=== PATIENT | male | born 1950 | race Caucasian/White ===

== ENCOUNTER → 2023-08-16 14:41 | Outpatient (CLI) | payer OTHER, SELFPAY ==
--- NOTE | 2023-08-16 | DI.RAD.S_ITS ---
PROCEDURE: XR HIP W PEL IF DONE DANNIE MIN 4V INDICATIONS: BILATERAL HIP PAIN TECHNIQUE: AP pelvis with lateral view(s) of the left hip(s). COMPARISON: None. FINDINGS: Bones: Severe left and moderate right degenerative changes. Age-indeterminate fracture deformity of the left femoral neck. Soft tissues: Moderate to large fecal loading. Partially seen intrathecal device. IMPRESSION: Severe left and moderate right hip degenerative changes. Age-indeterminate fracture deformity of the left proximal femur neck. Consider cross-sectional imaging correlation with clinical history to determine acuity. Called to the ED. Dictated by: Kanu Alicia M.D. on 08/16/2023 at 19:56 Approved by: Kanu Alicia M.D. on 08/16/2023 at 20:04
== END ==
PROVIDERS: PCP Internal Medicine; Referring Provider Nurse Practitioner; Visit Provider Nurse Practitioner
DX: S72.092A Other fracture of head and neck of left femur, initial encounter for closed fracture (principal); M25.551 Pain in right hip; M25.552 Pain in left hip
CPT/HCPCS: 73522

== ENCOUNTER 2023-08-17 12:02 | Inpatient (IN) | payer OTHER, SELFPAY ==
[2023-08-17 12:22] VITALS: BP 117/55; PULSE 101; RESP 16; TEMP 36.6; O2SAT 97; BMI 42.8
--- NOTE | 2023-08-17 12:41 | PC.NURSE ---
patient with assistance x 1 able to stand and pivot into wheelchair to use bathroom. able to bear weight on both legs. states that his has been doing physical therapy over at [facility] which has helped him.
[2023-08-17] MEDS: MORPHINE 4 MG/ML INJ IV ×2 (13:22→16:46)
--- NOTE | 2023-08-17 13:22 | ED.FALL ---
HPI - Fall General Chief Complaint: Fall Stated Complaint: Fall, hip pain Time Seen by Provider: 08/17/23 12:10 History of Present Illness HPI Narrative: Patient is a 73-year-old male history of diabetes, neuropathy, hypertension hyperlipidemia presents today with left hip pain. He fell on August 04 on his left side he was seen evaluated at [facility] where he would x-rays of his upper body done but none of his hip. He was ultimately sent sound [facility]. He continues to complain of left hip pain. He is minimally weight-bearing he says mostly he gets around by wheelchair. He had an outpatient hip x-ray done yesterday which does show a femoral neck fracture. He has no other complaints. Related Data Allergies Allergy/AdvReac Type Severity Reaction Status Date / Time No Known Drug Allergies Allergy Verified 08/17/23 13:26 Exam Initial Vital Signs Initial Vital Signs: Vital Signs Temperature 97.8 F 08/17/23 12:22 Pulse Rate 101 H 08/17/23 12:22 Respiratory Rate 16 08/17/23 12:22 Blood Pressure 117/55 L 08/17/23 12:22 Pulse Oximetry 97 08/17/23 12:22 Oxygen Delivery Method Room Air 08/17/23 12:22 GENERAL: Alert 73-year-old male BMI 42 and in no acute distress. HEENT: Head atraumatic,EOMI, pupils reactive, face symmetric, moist mucous membranes CARDIOVASCULAR: Regular rate and rhythm without murmurs, rubs or gallops. RESPIRATORY: Breath sounds equal bilaterally, no wheezes rales or rhonchi. ABDOMEN: Soft, nontender. Normoactive bowel sounds all 4 quadrants. No guarding or rebound. EXTREMITIES: Normal range of motion, no clubbing or edema. Neurovascularly intact Left hip pain distal pedal pulse intact legs are of equal length NEUROLOGICAL: Alert and oriented x4. SKIN: Warm, dry, no laceration, no petechiae, no rashes or lesions. Course Orders Ordered: ED Orders 08/17/23 13:00 CBC Auto Diff [Complete Blood Count AUTO DIFF] Stat CMP [Comprehensive Metabolic Panel] Stat 08/17/23 15:12 CT pelvis wo con Stat Discontinued Medications Morphine Sulfate (Morphine 4 Mg/Ml Inj) 4 mg IV NOW ONE Stop: 08/17/23 13:15 Last Admin: 08/17/23 13:22 Dose: 4 mg Documented By: LARRY Morphine Sulfate (Morphine 4 Mg/Ml Inj) 4 mg IV NOW ONE Stop: 08/17/23 16:23 Vital Signs Vital signs: Vital Signs - 8 hr 08/17/23 12:22 08/17/23 13:26 08/17/23 15:56 Temperature 97.8 F 98 F Pulse Rate 101 H 98 H 107 H Respiratory Rate 16 16 16 Blood Pressure 117/55 L 113/58 L 113/54 L Pulse Oximetry 97 95 97 Oxygen Delivery Method Room Air Room Air Room Air MDM - Fall Lab Data 08/17/23 13:00 08/17/23 13:00 Labs: Lab Results 08/17/23 Range/Units 13:00 WBC 10.1 (4.5-11.0) X10^3/uL RBC 4.28 L (4.5-5.9) X10^6/uL Hgb 11.9 L (13.5-17.5) g/dL Hct 36.8 L (41-53) % MCV 85.9 (80-100) fL MCH 27.7 (26-34) PG MCHC 32.2 (30-36) % RDW 15.8 H (11.6-14.8) % Plt Count 448 H (150-400) X10^3/uL Neut % (Auto) 50.0 (50-75) % Lymph % (Auto) 38.3 (25-40) % [place] % (Auto) 8.0 (3-14) % Eos % (Auto) 2.4 (2-4) % Baso % (Auto) 1.3 (0-2) % Neut # (Auto) 5100 (0974-8019) /uL Lymph # (Auto) 3900 (2396-8072) /uL [place] # (Auto) 800 (0-900) /uL Eos # (Auto) 200 (0-450) /uL Baso # (Auto) 100 (0-100) /uL Sodium 132 L (137-145) mmol/L Potassium 4.9 (3.4-5.1) mmol/L Chloride 95 L (98-107) mmol/L Carbon Dioxide 26 (22-32) mmol/L BUN 29 H (9-20) mg/dL Creatinine 1.02 (0.66-1.25) mg/dL Estimated GFR > 60 (>60) mL/min BUN/Creatinine Ratio 28.4 H (6-22) Glucose 93 (80-110) mg/dL Calcium 9.1 (8.4-10.2) mg/dL Total Bilirubin 0.6 (0.2-1.3) mg/dL AST 23 (17-59) IU/L ALT 15 (<50) IU/L Alkaline Phosphatase 107 (38-126) U/L Total Protein 7.5 (6.3-8.2) g/dL Albumin 3.8 (3.5-5.0) g/dL Globulin 3.7 (1.7-4.1) g/dL Albumin/Globulin Ratio 1.0 (1.0-2.8) Imaging Data Extremity x-ray #1: Radiologist's Impression: PROCEDURE: XR HIP W PEL IF DONE DANNIE MIN 4V INDICATIONS: BILATERAL HIP PAIN TECHNIQUE: AP pelvis with lateral view(s) of the left hip(s). COMPARISON: None. FINDINGS: Bones: Severe left and moderate right degenerative changes. Age-indeterminate fracture deformity of the left femoral neck. Soft tissues: Moderate to large fecal loading. Partially seen intrathecal device. IMPRESSION: Severe left and moderate right hip degenerative changes. Age-indeterminate fracture deformity of the left proximal femur neck. Consider cross-sectional imaging correlation with clinical history to determine acuity. Called to the ED. Dictated by: Kanu Alicia M.D. on 08/16/2023 at 19:56 CT Pelvis: Radiologist's Impression: PROCEDURE: CT PEL WO CON INDICATIONS: pain left hip TECHNIQUE: Noncontrast 3 mm axial sections acquired through the bony pelvis, with coronal and sagittal reformatting. [facility] DANNIE 3[facility]4V, 08/16/2023, 14:48. FINDINGS: Image quality: Excellent. Bones: Severe left and moderate right hip joint space narrowing. Left acetabula protrusio. Severe left and moderate right periarticular osteophyte formation. Chronic appearing flattening deformity of the left femoral head. Large hook osteophyte involving the inferomedial aspect of the left hip joint. Probable intra-articular loose bodies within the left hip joint. Soft tissues: Visualized bowel loops and vasculature are grossly unremarkable. No regional adenopathy. No fluid collections. Fat containing umbilical hernia measuring 40 mm transverse. IMPRESSION: 1. Osteoarthritis. No acute fracture. No osseous lesion. If symptoms and/or clinical suspicion for pathology persist, further assessment with nonemergent outpatient follow-up MRI or bone scan may be helpful for further assessment. Dictated by: Christian Shultz M.D. on 08/17/2023 at 16:17 MDM Narrative Medical decision making narrative: Patient is 73-year-old male presents today with left hip pain. He initially fell August 04 and sent to [facility]. He continues to have significant pain in his left hip. An outpatient x-ray done yesterday which showed significant arthritis and subacute left femoral neck fracture. Blood work has been reviewed Imaging has been reviewed Patient's pain is controlled with morphine. He is able to stand and pivot, but very minimal ambulation. He does have quite a bit of arthritis x-ray. 1400 Dr. Sharpe updated patient's symptoms test results aware that we are still waiting for Dr. Hamilton orthopedics to call back Dr. Hamilton [facility] called at 1:30 and 2:30 he called back at 3:[address] 1600Dr. Hamilton aware of CT, Dr. Joe will operate on hip on Tuesday. Dr. Sharpe accepts patient Discharge Plan Departure Patient Disposition: Admitted As Inpatient Clinical Impression: Closed left hip fracture Admit Date/Time: 08/17/23 16:31 Admit Provider: Kurt Sharpe
[2023-08-17 13:26] VITALS: BP 113/58; PULSE 98; RESP 16; O2SAT 95
[2023-08-17 13:27] LABS: Add Manual Diff / Slide Review NO; Basophils Absolute Auto 100 /uL (0-100); Basophils Percent Auto 1.3 % (0-2); Eosinophils Absolute Auto 200 /uL (0-450); Eosinophils Percent Auto 2.4 % (2-4); Hematocrit 36.8 % (41-53); Hemoglobin 11.9 g/dL (13.5-17.5); Lymphocytes Absolute Auto 3900 /uL (1100-4500); Lymphocytes Percent Auto 38.3 % (25-40); Mean Corpuscular HGB Conc 32.2 % (30-36); Mean Corpuscular Hemoglobin 27.7 PG (26-34); Mean Corpuscular Volume 85.9 fL (80-100); Monocytes Absolute Auto 800 /uL (0-900); Neutrophils Absolute Auto 5100 /uL (1500-7000); Platelet Count 448 X10^3/uL (150-400); Red Blood Cell Count 4.28 X10^6/uL (4.5-5.9); Red Cell Distribution Width 15.8 % (11.6-14.8); White Blood Cell Count 10.1 X10^3/uL (4.5-11.0)
[2023-08-17 13:39] LABS: Alanine Aminotransferase 15 IU/L (<50); Albumin 3.8 g/dL (3.5-5.0); Alkaline Phosphatase 107 U/L (38-126); Aspartate Aminotransferase 23 IU/L (17-59); BUN Creatinine Ratio 28.4 (6-22); Bilirubin Total 0.6 mg/dL (0.2-1.3); Blood Urea Nitrogen 29 mg/dL (9-20); Calcium 9.1 mg/dL (8.4-10.2); Carbon Dioxide 26 mmol/L (22-32); Chloride 95 mmol/L (98-107); Estimated Glomerular Filt Rate > 60 mL/min (>60); Globulin 3.7 g/dL (1.7-4.1); Glucose 93 mg/dL (80-110); HEMOLYSIS < 15 (0-50); Potassium 4.9 mmol/L (3.4-5.1); Sodium 132 mmol/L (137-145); Total Protein 7.5 g/dL (6.3-8.2)
--- NOTE | 2023-08-17 15:12 | DI.CT.S_ITS ---
PROCEDURE: CT PEL WO CON INDICATIONS: pain left hip TECHNIQUE: Noncontrast 3 mm axial sections acquired through the bony pelvis, with coronal and sagittal reformatting. COMPARISON: [facility], CR, XR HIP W PEL IF DONE DANNIE 3TO4V, 08/16/2023, 14:48. FINDINGS: Image quality: Excellent. Bones: Severe left and moderate right hip joint space narrowing. Left acetabula protrusio. Severe left and moderate right periarticular osteophyte formation. Chronic appearing flattening deformity of the left femoral head. Large hook osteophyte involving the inferomedial aspect of the left hip joint. Probable intra-articular loose bodies within the left hip joint. Soft tissues: Visualized bowel loops and vasculature are grossly unremarkable. No regional adenopathy. No fluid collections. Fat containing umbilical hernia measuring 40 mm transverse. IMPRESSION: 1. Osteoarthritis. No acute fracture. No osseous lesion. If symptoms and/or clinical suspicion for pathology persist, further assessment with nonemergent outpatient follow-up MRI or bone scan may be helpful for further assessment. Dictated by: Christian Shultz M.D. on 08/17/2023 at 16:17 Approved by: Christian Shultz M.D. on 08/17/2023 at 16:19
--- NOTE | 2023-08-17 15:18 | PC.NURSE ---
Pt able to stand and with minimal assistance, use a walker to use the restroom. Pt denied feeling dizzy while ambulating. Pt voided with no BM. Urine is yellow and clear.
[2023-08-17 15:56] VITALS: BP 113/54; PULSE 107; RESP 16; TEMP 36.6; O2SAT 97
--- NOTE | 2023-08-17 16:35 | P.HP_ITS ---
History of Present Illness History of Present Illness Date Patient Seen: 08/17/23 Time Patient Seen: 16:35 Chief complaint: Fall, hip pain Narrative: The patient is a 73-year-old male with history of diabetes mellitus 2, neuropathy, hypertension, and hyperlipidemia who presents with subacute left hip pain. The pain has been ongoing since a fall on August 04. The patient has had persistent and progressive left hip pain and is minimally weight-bearing has been using a wheelchair for the most part. Yesterday he presented and had an outpatient hip x-ray revealing a femoral neck fracture. He denies any numbness or weakness of the arm or leg. There has been no swelling of the leg. Case was reviewed with Orthopedics feel that a total hip replacement would be the best approach to this fracture. He also notes that he has a left radial head fracture that was identified in x- ray. He was sent from would emergency department to [facility] and has been there for the last 10 days. His left hip pain is not improved but he has been using a walker and ambulating. He notes minimal pain in the left arm and really minimal pain in the left elbow. He denies any chest pain, or dyspnea. No other injuries. He was given some morphine in the emergency department this is improving his leg pain. Meds Home Medications and Allergies Allergies Allergy/AdvReac Type Severity Reaction Status Date / Time No Known Drug Allergies Allergy Verified 08/17/23 13:26 Review of Systems Review of Systems Narrative: All else reviewed and otherwise unremarkable except as noted in the history and physical. Exam Vital Signs (past 8 hours): - 08/17/23 12:22 08/17/23 13:26 08/17/23 15:56 Temperature 97.8 F 98 F Pulse Rate 101 H 98 H 107 H Respiratory Rate 16 16 16 Blood Pressure 117/55 L 113/58 L 113/54 L Pulse Oximetry 97 95 97 Oxygen Delivery Method Room Air Room Air Room Air Oxygen Delivery Method Room Air Narrative Exam Narrative: NAD, fluent speech, normal affect. Normocephalic skull, anicteric sclera, EOMI. No facial droop. Oropharynx unremarkable. Neck appears normal, midline trachea. No cervical adenopathy. Lungs are clear with normal effort. Heart is regular, no murmur. Abdomen is soft, distended, non tender. Extremities are free of edema. He is good radial pulses. His joints are not swollen or deformed. There is very small amount of tenderness over the left radial head with deep palpation. Skin is otherwise notable for areas of ecchymosis consistent with [place] in the pannus creases and under the right breast. His skin is generally excoriated as well. Is a small unstageable lesion in the left lower sacrum which has a dressing in place at the time of admission. Motor strength is 5/5 all extremities, speech and judgment are normal. Objective Imaging Pelvis CT: Radiologist's impression: 1. Osteoarthritis. No acute fracture. No osseous lesion. If symptoms and/or clinical suspicion for pathology persist, further assessment with nonemergent outpatient follow-up MRI or bone scan may be helpful for further assessment. Left Hip Xray: Radiologist's impression: Severe left and moderate right hip degenerative changes. Age-indeterminate fracture deformity of the left proximal femur neck. Consider cross-sectional imaging correlation with clinical history to determine acuity. Called to the ED. Labs 08/17/23 13:00 08/17/23 13:00 Labs: Laboratory Results - last 24 hr 08/17/23 13:00 WBC 10.1 RBC 4.28 L Hgb 11.9 L Hct 36.8 L MCV 85.9 MCH 27.7 MCHC 32.2 RDW 15.8 H Plt Count 448 H Neut % (Auto) 50.0 Lymph % (Auto) 38.3 [place] % (Auto) 8.0 Eos % (Auto) 2.4 Baso % (Auto) 1.3 Neut # (Auto) 5100 Lymph # (Auto) 3900 [place] # (Auto) 800 Eos # (Auto) 200 Baso # (Auto) 100 Sodium 132 L Potassium 4.9 Chloride 95 L Carbon Dioxide 26 BUN 29 H Creatinine 1.02 Estimated GFR > 60 BUN/Creatinine Ratio 28.4 H Glucose 93 Calcium 9.1 Total Bilirubin 0.6 AST 23 ALT 15 Alkaline Phosphatase 107 Total Protein 7.5 Albumin 3.8 Globulin 3.7 Albumin/Globulin Ratio 1.0 Assessment & Plan Assessment & Plan narrative: 1. Subacute left hip fracture, present on admission and active. 2. Hyponatremia, present on admission and active. 3. Diabetes mellitus 2, present on admission and active. 4. Hypertension, present on admission and active. 5. Hyperlipidemia, present on admission and active. Plan: -we will resume usual medications for diabetes, hypertension and blood pressure with the exception of oral diabetic medications. Anticipate operative repair of the hip on Tuesday. NPO at midnight . -we will use a simple Lantus 10 HS and low-dose correctional lispro regimen for tonight. Full code. Confirmed at time of his admission. Time Spent With Patient Time with patient: 30 to 49 minutes with 50% spent counseling/coordinating care Quality MIPS - Admit I confirm the patient?s Advance Care Plan is present, Code status is documented, Surrogate decision maker is in patient?s record [If Yes, STOP here]: Yes [facility] - Meds 'Current medications' to include all prescriptions, [id number] products, herbals, cannabis/cannabidiol products, and vitamin/mineral/dietary (nutritional) supplements. I have utilized all available resources to obtain, update, or review the patient?s current medications. [If Yes, STOP here]: Yes
[2023-08-17 17:22] VITALS: BP 108/57; PULSE 95; RESP 18; O2SAT 96
--- NOTE | 2023-08-17 17:57 | P.CONS_ITS ---
History of Present Illness Consult details Date Patient Seen: 08/17/23 Time Patient Seen: 17:57 Chief complaint: Fall, hip pain Narrative: 73-year-old gentleman who states he fell on the 8th this month. Was initially seen at [facility] where x-rays were taken of his left elbow. But no x- rays of his left hip. Was sent to a assisted facility. Was able to ambulate but was complaining of pain to the hip. Does give a history of chronic pain to the left hip which was worsened since the fall. Over time started to have more and more difficulty ambulating and eventually was sent to the ER today where x-ray showed significant arthritis to his left hip as well as a fracture involving his femoral neck. Meds Home Medications and Allergies Allergies Allergy/AdvReac Type Severity Reaction Status Date / Time No Known Drug Allergies Allergy Verified 08/17/23 13:26 Exam Vital Signs (past 8 hours): - 08/17/23 12:22 08/17/23 13:26 08/17/23 15:56 Temperature 97.8 F 98 F Pulse Rate 101 H 98 H 107 H Respiratory Rate 16 16 16 Blood Pressure 117/55 L 113/58 L 113/54 L Pulse Oximetry 97 95 97 Oxygen Delivery Method Room Air Room Air Room Air 08/17/23 17:22 Temperature Pulse Rate 95 H Respiratory Rate 18 Blood Pressure 108/57 L Pulse Oximetry 96 Oxygen Delivery Method Room Air Oxygen Delivery Method Room Air Narrative Exam Narrative: On exam patient was up in his room getting around using a walker. Able to ambulate using the walker with protected weight-bearing on his left leg. Is complaining of pain to the left hip. Not much discomfort with range of motion of the hip in a supine position. Does seem to be crepitus coming from the left hip joint. Positive dorsiflexion and plantar flexion. Nontender to palpation to the posterior aspect of his calf. No sign of any swelling or instability to the knee or ankle. Palpable pedal pulses. Does have some bruising around the left elbow but has full range of motion of the elbow. Some tenderness to palpation over his radial head. Objective Labs 08/17/23 13:00 08/17/23 13:00 Labs: Laboratory Results - last 24 hr 08/17/23 13:00 WBC 10.1 RBC 4.28 L Hgb 11.9 L Hct 36.8 L MCV 85.9 MCH 27.7 MCHC 32.2 RDW 15.8 H Plt Count 448 H Neut % (Auto) 50.0 Lymph % (Auto) 38.3 [place] % (Auto) 8.0 Eos % (Auto) 2.4 Baso % (Auto) 1.3 Neut # (Auto) 5100 Lymph # (Auto) 3900 [place] # (Auto) 800 Eos # (Auto) 200 Baso # (Auto) 100 Sodium 132 L Potassium 4.9 Chloride 95 L Carbon Dioxide 26 BUN 29 H Creatinine 1.02 Estimated GFR > 60 BUN/Creatinine Ratio 28.4 H Glucose 93 Calcium 9.1 Total Bilirubin 0.6 AST 23 ALT 15 Alkaline Phosphatase 107 Total Protein 7.5 Albumin 3.8 Globulin 3.7 Albumin/Globulin Ratio 1.0 Assessment & Plan Assessment & Plan narrative: Patient is status post a fall almost 2 weeks ago now with signs of a femoral neck fracture as well as chronic hip arthritis. Patient states that he had x- rays of his left upper extremity at [facility] we will see if we can access those x-rays to see if there is any issues in regards to his left elbow. On exam he had full range of motion and very minimal pain. In regards to his left hip due to the amount of arthritic changes patient is a candidate for a total hip arthroplasty which would provide him better pain relief and functionality than just fixing his femoral neck fracture. This will most likely be done on Tuesday.
[2023-08-17 18:00] VITALS: BP 119/57; PULSE 105; RESP 20; TEMP 36.1; O2SAT 95; BMI 42.8
[2023-08-17 18:39] LABS: Hemoglobin A1C% w Est Avg Glu 5.8 % (4.0-6.0)
--- NOTE | 2023-08-17 18:48 | PC.NURSE ---
Pt to room 217 via stretcher and able to transfer to bed with fww and assist. Oriented to room, call light, bed controls, and tv controls. SCD's on and running. Bed alarm on for safety. Pt up to br to void and then back to bed. Pt ate dinner and denies needs at this time. Pt agrees to call for assistance as needed and to not get up without help.
[2023-08-17] MEDS: HYDROMORPHONE 0.5 MG INJ IV ×2 (20:35→20:36)
[2023-08-17] MEDS: ACETAMINOPHEN 325 MG TABLET 650 MG PO (20:35)
[2023-08-17] MEDS: HEPARIN 5,000 UNIT/ML VIAL 5000 UNIT SUBCUT (20:36)
[2023-08-17 23:38] VITALS: BP 102/51; PULSE 98; RESP 22; TEMP 36.7; O2SAT 94
[2023-08-18] MEDS: HYDROMORPHONE 0.5 MG INJ IV ×2 (02:31→09:44)
[2023-08-18 04:38] LABS: Add Manual Diff / Slide Review NO; Basophils Absolute Auto 0 /uL (0-100); Basophils Percent Auto 0.2 % (0-2); Eosinophils Absolute Auto 300 /uL (0-450); Eosinophils Percent Auto 4.8 % (2-4); Hematocrit 33.9 % (41-53); Hemoglobin 11.2 g/dL (13.5-17.5); Lymphocytes Absolute Auto 2600 /uL (1100-4500); Lymphocytes Percent Auto 41.2 % (25-40); Mean Corpuscular HGB Conc 33.1 % (30-36); Mean Corpuscular Hemoglobin 28.1 PG (26-34); Mean Corpuscular Volume 85.1 fL (80-100); Monocytes Absolute Auto 700 /uL (0-900); Monocytes Percent Auto 11.6 % (3-14); Neutrophils Absolute Auto 2700 /uL (1500-7000); Neutrophils Percent Auto 42.2 % (50-75); Platelet Count 403 X10^3/uL (150-400); Red Blood Cell Count 3.98 X10^6/uL (4.5-5.9); Red Cell Distribution Width 16.1 % (11.6-14.8); White Blood Cell Count 6.3 X10^3/uL (4.5-11.0)
[2023-08-18 04:49] LABS: BUN Creatinine Ratio 27.2 (6-22); Blood Urea Nitrogen 22 mg/dL (9-20); Calcium 8.9 mg/dL (8.4-10.2); Carbon Dioxide 27 mmol/L (22-32); Chloride 99 mmol/L (98-107); Estimated Glomerular Filt Rate > 60 mL/min (>60); Glucose 97 mg/dL (80-110); HEMOLYSIS < 15 (0-50); Potassium 4.4 mmol/L (3.4-5.1); Sodium 133 mmol/L (137-145)
--- NOTE | 2023-08-18 07:37 | PM.PN.1 ---
Subjective Subjective Interval history: No problems overnight. He is breathing fine. His pain is well-controlled on the left hip with his pain medication. Exam Vital Signs (past 8 hours): - 08/17/23 23:38 Temperature 98.1 F Pulse Rate 98 H Respiratory Rate 22 Blood Pressure 102/51 L Pulse Oximetry 94 Oxygen Flow Rate 2 Oxygen Delivery Method Room Air Oxygen Flow Rate 2 Narrative Exam Narrative: NAD Fluent speech, calm. Lungs are clear, normal effort. Heart is regular, no murmur. Abdomen is soft, non tender. Extremities are free of edema. Objective Labs 08/18/23 04:25 08/18/23 04:25 Labs: Laboratory Results - last 24 hr 08/17/23 08/18/23 13:00 04:25 WBC 10.1 6.3 RBC 4.28 L 3.98 L Hgb 11.9 L 11.2 L Hct 36.8 L 33.9 L MCV 85.9 85.1 MCH 27.7 28.1 MCHC 32.2 33.1 RDW 15.8 H 16.1 H Plt Count 448 H 403 H Neut % (Auto) 50.0 42.2 L Lymph % (Auto) 38.3 41.2 H [place] % (Auto) 8.0 11.6 Eos % (Auto) 2.4 4.8 H Baso % (Auto) 1.3 0.2 Neut # (Auto) 5100 2700 Lymph # (Auto) 3900 2600 [place] # (Auto) 800 700 Eos # (Auto) 200 300 Baso # (Auto) 100 0 Sodium 132 L 133 L Potassium 4.9 4.4 Chloride 95 L 99 Carbon Dioxide 26 27 BUN 29 H 22 H Creatinine 1.02 0.81 Estimated GFR > 60 > 60 BUN/Creatinine Ratio 28.4 H 27.2 H Glucose 93 97 Hemoglobin A1c 5.8 Calcium 9.1 8.9 Total Bilirubin 0.6 AST 23 ALT 15 Alkaline Phosphatase 107 Total Protein 7.5 Albumin 3.8 Globulin 3.7 Albumin/Globulin Ratio 1.0 [facility] Social History household members: none Smoking Status: Former smoker alcohol intake: never Assessment & Plan Assessment & Plan narrative: 1. Subacute left hip fracture, present on admission and active. 2. Hyponatremia, present on admission and active. 3. Diabetes mellitus 2, present on admission and active. 4. Hypertension, present on admission and active. 5. Hyperlipidemia, present on admission and active. 6. Tinea corporis, present on admission and active. Continue Nystatin BID. Plan: -we will continue usual medications for diabetes, hypertension and blood pressure with the exception of oral diabetic medications. Anticipate operative repair of the hip on Tuesday. NPO at midnight . -Hip MRI per Dr. Hamilton. If positive for a neck fracture, proceed with surgery Tue. If negative, defer to outpatient for THR. Full code. Confirmed at time of his admission. Time Spent With Patient Time with patient: 30 to 49 minutes with 50% spent counseling/coordinating care
--- NOTE | 2023-08-18 08:22 | PM.PN.1 ---
Subjective Subjective Interval history: Patient seen this morning. Reports ongoing pain in left hip which has been longstanding. Did not personally witness him ambulating however during Dr. Hamilton's exam yesterday he documented patient ambulating and tolerating hip range of motion without significant discomfort. CT scan was obtained which was read by radiology as negative for fracture. There is a line on the coronal CT which is included below that appears to show a fracture line. However, given the patient's minimal symptoms and the radiology read indicating that there is no fracture, the lines visualized on his femoral neck may be an artifact of overlying osteophytes from his acetabular rim. Given the discordant imaging findings, my current recommendation is an MRI of the hip. If the MRI does in fact show a fracture line extending through the femoral neck, I would recommend a total hip to be performed this Tuesday. If the MRI does not show a fracture line, I would still recommend a total hip however I would plan to do this in an outpatient fashion. This would allow a period of optimization prior to moving forward with the total hip. In particular, this would allow treatment of a rash in his groin which he says has just appeared recently. My incision for an anterior hip would be adjacent to that rash and therefore would be preferable to allow it to resolve before moving forward with surgery. If there is a fracture, however, it will not be feasible to wait for surgery and I would therefore make plans to move forward with it tomorrow while acknowledging the risks associated with wound healing issues given his large overlying pannus and the presence of a rash adjacent to the planned incision. He reports no other major medical concerns other than Diabetes and a BMI of 42 and has a normal Hemoglobin A1c drawn after arrival here indicating good baseline control. I will followup after the MRI has been obtained with a definitive plan. Exam Vital Signs (past 8 hours): Oxygen Delivery Method Room Air Oxygen Flow Rate 2 Objective Labs 08/18/23 04:25 08/18/23 04:25 Labs: Laboratory Results - last 24 hr 08/17/23 08/18/23 13:00 04:25 WBC 10.1 6.3 RBC 4.28 L 3.98 L Hgb 11.9 L 11.2 L Hct 36.8 L 33.9 L MCV 85.9 85.1 MCH 27.7 28.1 MCHC 32.2 33.1 RDW 15.8 H 16.1 H Plt Count 448 H 403 H Neut % (Auto) 50.0 42.2 L Lymph % (Auto) 38.3 41.2 H [place] % (Auto) 8.0 11.6 Eos % (Auto) 2.4 4.8 H Baso % (Auto) 1.3 0.2 Neut # (Auto) 5100 2700 Lymph # (Auto) 3900 2600 [place] # (Auto) 800 700 Eos # (Auto) 200 300 Baso # (Auto) 100 0 Sodium 132 L 133 L Potassium 4.9 4.4 Chloride 95 L 99 Carbon Dioxide 26 27 BUN 29 H 22 H Creatinine 1.02 0.81 Estimated GFR > 60 > 60 BUN/Creatinine Ratio 28.4 H 27.2 H Glucose 93 97 Hemoglobin A1c 5.8 Calcium 9.1 8.9 Total Bilirubin 0.6 AST 23 ALT 15 Alkaline Phosphatase 107 Total Protein 7.5 Albumin 3.8 Globulin 3.7 Albumin/Globulin Ratio 1.0 [facility] Social History household members: none Smoking Status: Former smoker alcohol intake: never
--- NOTE | 2023-08-18 08:46 | DI.MRI.S_ITS ---
PROCEDURE: MR PELVIS WO CON INDICATIONS: Concern for femoral neck fracture not called on CT scan TECHNIQUE: Noncontrast coronal and axial T1 spin echo and STIR through the bony pelvis. COMPARISON: [facility], CR, XR HIP W PEL IF DONE DANNIE 3TO4V, 08/16/2023, 14:48. FINDINGS: Image quality: Excellent. Bones: Bony edema of the left femoral neck, just above the greater trochanter. This is at the insertion of the capsule. Very subtle T1 hypointense line within this region (series 7, image 31). Soft tissues: Visualized muscles demonstrate normal bulk and internal signal. No joint effusions. No free pelvic fluid. Bladder wall thickness is normal. Genitourinary structures and bowel loops appear normal where visualized. IMPRESSION: Suspect very subtle, incomplete transcervical fracture of the left femoral neck. Alternatively, this could be due to repetitive stress injury. Dictated by: Shantanu Nieto M.D. on 08/18/2023 at 11:14 Approved by: Shantanu Nieto M.D. on 08/18/2023 at 11:20
[2023-08-18 09:03] VITALS: BP 149/74; PULSE 100; RESP 18; TEMP 36.2
[2023-08-18 09:33] VITALS: BP 149/74
[2023-08-18] MEDS: ASPIRIN EC 81 MG TABLET PO (09:33)
[2023-08-18] MEDS: METHADONE 10 MG TABLET PO ×2 (09:33→20:31)
[2023-08-18] MEDS: lisinopriL 10 MG TABLET PO (09:33)
[2023-08-18] MEDS: HEPARIN 5,000 UNIT/ML VIAL 5000 UNIT SUBCUT (09:34)
[2023-08-18] MEDS: GABAPENTIN 600 MG TABLET PO ×4 (09:34→20:31)
[2023-08-18] MEDS: INSULIN GLARGINE 100 UNIT/ML 3ML PEN 9 UNIT SUBCUT ×2 (09:41→20:54)
[2023-08-18] MEDS: NYSTATIN POWDER 15GM 1 APPLIC TOP (09:43)
[2023-08-18] MEDS: OXYCODONE IR 5 MG TABLET PO ×3 (12:29→20:31)
--- NOTE | 2023-08-18 14:00 | CM.DANOTE ---
Initial DCP Assessment Note Pt is a 73 yo male, resident of [place], presents from [facility] with hip pain, found to have hip fracture needing repair. Patient placed on the surgery schedule for tomorrow 08.19.23 PCP: Zia Sullivan Payer: [facility] Reviewed chart, met a/patient and his daughter Denise, introduced self and role. Patient had been living at home, had a fall and was seen at [facility] then sent to [facility]. Patient intends to return to [facility] upon discharge. Daughter reports APS involvement but does not know if there has been an APS worker assigned. SW at [facility] has been in direct contact w/APS per daughter. Daughter explains that patient has a pending Medicaid application. Daughter and patient hopeful for [facility] placement once [facility] is active. Discussed patient with Opal at [facility] who explains that patient is okay to readmit to [facility] once auth is obtained from [facility]. CM team will plan to follow closely for coordination of discharge plan. ANGELA Aleman Discharge Planning/Care Management CM Discharge Assessment Start: 08/18/23 13:49 Freq: Status: Active Protocol: Document 08/18/23 13:49 MARISA (Rec: 08/18/23 14:00 MARISA [id number]) Discharge Planning Assessment Assigned Parts Cataloguer ANGELA Styles DPOA/Assigned Designee Name freddie Coppola Contact Information [phone] Advance Directives? No History Provided By Family Member,Medical Record Prior Living Arrangements Skilled Nurse Facility Household Members none Facility Name Admitted From: [facility] Willing to Return to Facility? Yes: Home originally but from [facility] from 08/04 fall Independent with ADL's No Is patient alert and oriented? Yes Patient/Family Preference Long Term Facility Comment Return to [facility] Barriers to Discharge No Comment [facility] will need an auth obtained from [facility] before admission. Discharge Plan Long Term Facility Transportation Arrangement Likely wheelchair Referrals Initiated Long Term SNF/HH Preference [facility] Has Agency SNF been contacted Yes Whiteboard Updated in Patient Room with Yes name and ext. # of Parts Cataloguer
[2023-08-18 17:00] VITALS: BP 108/61; PULSE 79; RESP 16; TEMP 36.3; O2SAT 95
[2023-08-18] MEDS: ATORVASTATIN 20 MG TABLET 40 MG PO (20:31)
[2023-08-18 20:49] VITALS: BP 91/42; BP 95/50; PULSE 80; RESP 20; TEMP 37; O2SAT 92
[2023-08-18 22:45] VITALS: BP 90/40; BP 92/41
[2023-08-18] MEDS: SODIUM CHLORIDE 0.9% 1,000 ML 100 ML IV (23:00)
[2023-08-18] MEDS: SODIUM CHLORIDE 0.9% 500 ML 1000 ML IV (23:26)
[2023-08-19] VITALS (15 sets, daily range): BP systolic 84–146; BP diastolic 41–93; PULSE 86–113; RESP 11–100; TEMP 35.9–36.7; O2SAT 10–100; BMI 42.8
--- NOTE | 2023-08-19 | DI.RAD.S_ITS ---
PROCEDURE: XR HIP W PEL IF DONE LT 2V INDICATIONS: LT TOTAL HIP TECHNIQUE: 5 intraoperative fluoroscopic images COMPARISON: [facility], CR, XR HIP W PEL IF DONE DANNIE 3TO4V, 08/16/2023, 14:48. FINDINGS: Five intraoperative fluoroscopic images demonstrate left total hip arthroplasty with prosthetic elements in appropriate position. IMPRESSION: Intraoperative fluoroscopic images demonstrate total left hip arthroplasty. Please see separately dictated operative report for full details. Approved by: Marsha Martino M.D. on 08/21/2023 at 23:34
--- NOTE | 2023-08-19 02:27 | PC.NURSE ---
Blood pressure 90/41 with MAP of 51, asymptomatic. Received order from Dr. Ontiveros for NS 500ml bolus, then continue at 100/hr.
[2023-08-19] MEDS: OXYCODONE IR 5 MG TABLET PO (02:58)
[2023-08-19 04:34] LABS: Add Manual Diff / Slide Review NO; Basophils Absolute Auto 0 /uL (0-100); Basophils Percent Auto 0.4 % (0-2); Eosinophils Absolute Auto 400 /uL (0-450); Hematocrit 33.4 % (41-53); Lymphocytes Absolute Auto 3300 /uL (1100-4500); Lymphocytes Percent Auto 43.6 % (25-40); Mean Corpuscular Hemoglobin 28.2 PG (26-34); Mean Corpuscular Volume 85.6 fL (80-100); Monocytes Absolute Auto 800 /uL (0-900); Monocytes Percent Auto 10.3 % (3-14); Neutrophils Absolute Auto 3000 /uL (1500-7000); Neutrophils Percent Auto 40.7 % (50-75); Platelet Count 397 X10^3/uL (150-400); White Blood Cell Count 7.5 X10^3/uL (4.5-11.0)
[2023-08-19 04:46] LABS: BUN Creatinine Ratio 26.5 (6-22); Blood Urea Nitrogen 26 mg/dL (9-20); Calcium 8.6 mg/dL (8.4-10.2); Carbon Dioxide 25 mmol/L (22-32); Chloride 97 mmol/L (98-107); Estimated Glomerular Filt Rate > 60 mL/min (>60); Glucose 112 mg/dL (80-110); HEMOLYSIS < 15 (0-50); Potassium 4.4 mmol/L (3.4-5.1); Sodium 132 mmol/L (137-145)
[2023-08-19] MEDS: HYDROMORPHONE 0.5 MG INJ IV ×2 (05:10→12:20)
--- NOTE | 2023-08-19 07:48 | P.PN_ITS ---
Subjective Subjective Interval history: No problems overnight. Exam Vital Signs (past 8 hours): - 08/19/23 03:18 Blood Pressure 107/64 Oxygen Delivery Method Room Air Oxygen Flow Rate 0 Narrative Exam Narrative: NAD, calm, fluent speech. Lungs are clear, normal rate and effort. Heart is regular, no murmur gallop or rub. Abdomen is non tender. Extremities are free of edema. Objective Imaging MRI Hip: Radiologist's impression: Suspect very subtle, incomplete transcervical fracture of the left femoral neck. Labs 08/19/23 04:11 08/19/23 04:11 Labs: Laboratory Results - last 24 hr 08/19/23 04:11 WBC 7.5 RBC 3.90 L Hgb 11.0 L Hct 33.4 L MCV 85.6 MCH 28.2 MCHC 33.0 RDW 16.0 H Plt Count 397 Neut % (Auto) 40.7 L Lymph % (Auto) 43.6 H [place] % (Auto) 10.3 Eos % (Auto) 5.0 H Baso % (Auto) 0.4 Neut # (Auto) 3000 Lymph # (Auto) 3300 [place] # (Auto) 800 Eos # (Auto) 400 Baso # (Auto) 0 Sodium 132 L Potassium 4.4 Chloride 97 L Carbon Dioxide 25 BUN 26 H Creatinine 0.98 Estimated GFR > 60 BUN/Creatinine Ratio 26.5 H Glucose 112 H Calcium 8.6 PFSH Social History household members: none Smoking Status: Former smoker alcohol intake: never Assessment & Plan Assessment & Plan narrative: 1. Subacute left hip fracture, present on admission and active. 2. Hyponatremia, present on admission and active. 3. Diabetes mellitus 2, present on admission and active. 4. Hypertension, present on admission and active. 5. Hyperlipidemia, present on admission and active. 6. Tinea corporis, present on admission and active. Continue Nystatin BID. Plan: -THR today -will decrease lantus perioperatively. -resume SQ heparin after surgery Full code. Time Spent With Patient Time with patient: 30 to 49 minutes with 50% spent counseling/coordinating care
[2023-08-19] MEDS: GABAPENTIN 600 MG TABLET PO ×2 (09:09→12:20)
[2023-08-19] MEDS: INSULIN GLARGINE 100 UNIT/ML 3ML PEN 9 UNIT SUBCUT (09:09)
[2023-08-19] MEDS: ASPIRIN EC 81 MG TABLET PO (09:09)
[2023-08-19] MEDS: METHADONE 10 MG TABLET PO (09:09)
[2023-08-19] MEDS: lisinopriL 10 MG TABLET PO (09:09)
[2023-08-19] MEDS: SODIUM CHLORIDE 0.9% 1,000 ML 100 ML IV ×4 (09:59→18:18)
[2023-08-19] MEDS: LACTATED RINGERS 1,000 ML 42 ML IV (13:51)
--- NOTE | 2023-08-19 14:00 | DI.RAD.S_ITS ---
PROCEDURE: XR HIP W PEL IF DONE LT 2V INDICATIONS: INNER OP TECHNIQUE: 2 view(s) of the hip acquired. COMPARISON: [facility], [place], XR HIP W PEL IF DONE LT 2V, 08/19/2023, 15:43. FINDINGS: Bones: Patient is status post left total hip arthroplasty, with hardware components in expected positions. The hip joint appears congruent. The visualized bony structures appear intact. Degenerative changes of the right hip. Soft tissues: Overlying postoperative changes are noted. No suspicious soft tissue densities. IMPRESSION: Expected post-operative appearance of a hip arthroplasty. Dictated by: Moshe Alexandre M.D. on 08/19/2023 at 23:02 Approved by: Moshe Alexandre M.D. on 08/19/2023 at 23:03
[2023-08-19 14:15] LABS: Prothrombin Time 11.7 SECONDS (9.4-12.5)
[2023-08-19] MEDS: ACETAMINOPHEN IV 1,000 MG/100 ML VIAL 400 MG IV (14:16)
[2023-08-19 14:17] LABS: PTT Partial Thromboplastin Tim 36 SECONDS (25.1-36.5)
--- NOTE | 2023-08-19 14:22 | PM.PN.1 ---
Subjective Subjective Interval history: Patient seen in preoperative holding area in preparation for surgery today. He was admitted with worsening hip pain. He had a fall approximately 2 weeks ago on 08/04/2023. Since that time he has had progressively worsening left hip pain. CT scan showed a cortical defect in the superior aspect of the femoral neck. MRI demonstrated signal changes in the same position. This is therefore a tension sided impending femoral neck fracture. Additionally, the patient has severe end-stage hip arthritis. Given his severe hip arthritis I feel that the most appropriate surgery in his case is a total hip arthroplasty as prophylactic fixation of his impending tension sided femoral neck fracture with still leave him with hip pain from his severe arthritis. He has diabetes which is appropriately controlled based on his hemoglobin A1c which was drawn on arrival here at the hospital. Additionally, he has a BMI of 43. His body habitus consists of a fat distribution which is very heavily abdominally based. He has a large pannus which overlies his groin area bilaterally and a erythematous rash in his bilateral groins. We have been treating this rash with antifungals since his arrival here at the hospital. I plan to perform his hip through an anterior approach and placed my incision outside the area of the rash. I will utilize intra wound antibiotics, postoperative antifungal medications in coordination with the medical team here, and an incisional wound VAC device to attempt to mitigate the risks of his severe rash as much as possible. I have discussed with him my concerns about wound breakdown and possible infection in detail. With regards to the planned construct for his total hip, I preliminarily plan to use uncemented fixation. Although this is an impending femoral neck stress fracture, his cortices appear quite thick radiographically and his severe arthritis may have contributed to excess stress through this region resulting in his stress fracture at the time of his fall. This therefore may not be directly attributable to osteoporosis. I will assess his bone quality intraoperatively and if I determine that there is worse bone quality than anticipated, I would transition to using cemented fixation for his femur. Exam Vital Signs (past 8 hours): - 08/19/23 09:09 08/19/23 11:00 08/19/23 13:32 Temperature 96.6 F L 97.0 F L Pulse Rate 99 H 99 H 86 Respiratory Rate 22 18 Blood Pressure 146/60 H 146/60 H 117/76 Pulse Oximetry 97 94 Oxygen Delivery Method Room Air Oxygen Flow Rate 0 Oxygen Delivery Method Room Air Oxygen Flow Rate 0 Objective Labs 08/19/23 04:11 08/19/23 04:11 Labs: Laboratory Results - last 24 hr 08/19/23 08/19/23 04:11 13:48 WBC 7.5 RBC 3.90 L Hgb 11.0 L Hct 33.4 L MCV 85.6 MCH 28.2 MCHC 33.0 RDW 16.0 H Plt Count 397 Neut % (Auto) 40.7 L Lymph % (Auto) 43.6 H [place] % (Auto) 10.3 Eos % (Auto) 5.0 H Baso % (Auto) 0.4 Neut # (Auto) 3000 Lymph # (Auto) 3300 [place] # (Auto) 800 Eos # (Auto) 400 Baso # (Auto) 0 PT 11.7 INR 1.0 APTT 36 Sodium 132 L Potassium 4.4 Chloride 97 L Carbon Dioxide 25 BUN 26 H Creatinine 0.98 Estimated GFR > 60 BUN/Creatinine Ratio 26.5 H Glucose 112 H Calcium 8.6 Crossmatch See Detail [facility] Medical History (Updated 08/19/23 @ 13:43 by Azucena Mireles RN) Diabetes mellitus HLD (hyperlipidemia) HTN (hypertension) Surgical History (Updated 08/19/23 @ 13:49 by Azucena Mireles RN) History of tonsillectomy (~1961) History of lumbar surgery Social History household members: none Smoking Status: Former smoker alcohol intake: never
--- NOTE | 2023-08-19 14:32 | PM.PREOP ---
Pre-operative Note Interval Note History & Physical reviewed/Exam performed by Physician: Yes Changes to H&P: No
[2023-08-19] MEDS: FLUCONAZOLE 400 MG/200 ML PIGGYBACK 100 MG IV (15:00)
[2023-08-19] MEDS: CEFAZOLIN VIAL 3 GM in SODIUM CHLORIDE 0.9% 100 ML IV ×2 (15:15→23:13)
[2023-08-19] MEDS: TRANEXAMIC ACID 1,000 MG VIAL 2000 MG INJ (15:29)
--- NOTE | 2023-08-19 15:37 | SUR.OPER ---
Patient supine on padded [place] table, one arm on padded arm board at <90, other arm padded and secured with tape across patient's chest, both legs secured in padded traction boots and positioned per surgeon, padded post at patient's groin, pressure points checked and padded.
[2023-08-19] MEDS: ROPIVACAINE/EPI/CLONIDINE/KET 50 ML SYRINGE INJ (15:50)
--- NOTE | 2023-08-19 19:26 | P.OP_ITS ---
Operative Date/Time/Diagnoses Date of procedure: 08/19/23 Pre-op diagnosis: Tension sided incomplete left femoral neck stress fracture in the setting of pre-existing severe arthritis Post-op diagnosis: same Procedure & Clinicians Procedure: Left total hip arthroplasty (88815 + [id number]) Same procedure as scheduled: Yes Indications: Tension sided femoral neck stress fracture as visualized by the fracture line on CT scan above and the corresponding stress reaction in the same location on the above MRI Surgeon: Lakhwinder Rosenberg Kiln Door Builder: Merry Jefferson Anesthesia Type: General and Local Operative Notes Findings: Prosthetic devices, grafts, tissues, transplants, or devices: Depuy total hip arthroplasty: -Seymour 58 mm acetabular component with 2 screws -Altrx 36 mm +4 liner -Actis 8 high offset -36 mm +12 ceramic head -2 Bunn [employer]hew Evos 2.0 mm cables Estimated Blood Loss (mL): 2,000 Procedure in detail: This 73-year-old male patient presented to the hospital with worsening left hip pain. A fall 08/20 had progressive hip pain since that time. Radiographs were obtained after presentation to the emergency department earlier this week and demonstrated nondisplaced femoral neck stress fracture. CT scan was obtained and a fracture line could be visualized on the CT scan however the radiology read was equivocal. I therefore obtained an MRI of the left hip which showed a stress reaction in the superior femoral neck on the tension side same location as fracture line which could be visualized on plain films and CT scan. Based on the patient's underlying severe hip arthritis, I felt that proceeding with a total hip replacement would be more advisable then proceeding with hip pinning as a hip pinning would still and tail some risks but would leave him with a severely arthritic hip. I felt that there would be more benefit with proceeding with the definitive surgery of a total hip arthroplasty. This would address both his impending femoral neck stress fracture and his underlying severe arthritis. From a risk factor perspective he had diabetes with the appropriate control and a BMI of 42.9. His BMI with the most relevant with regards to his body habitus. Specifically he had very truncal obesity with a large pannus that overlied his bilateral groins and a significant rash in both groins. In order to attempt to minimize the risk associated with these groin rashes in the setting of his femoral neck stress fracture, he was treated with antifungals in preparation for surgery. In addition I planned to place my incision more distally outside of the affected area, placed intra wound vancomycin, provide antifungals, and utilize a incisional wound vacuum device. I discussed in detail with the patient the risks associated with his rash, specifically his risk of infection. He understood these risks and wished to proceed. The operative site was marked. Informed consent was signed. All questions were answered. The patient was brought back to the operating room and general anesthesia was induced. He was transferred to the operating table. A large pannus retractor device from the obstetrics and gynecology cart had to be utilized to gain access to his operative site. I marked out the areas where he had his pannus overlying his groin and planned to make my incision outside of the affected area. The groin rashes were cleaned both in the preoperative holding area and intraoperatively in an attempt to minimize any fungal contamination. The operative site was scrubbed with Betadine followed by a chlorhexidine sponge followed by a chlorhexidine scrub brush. A time-out procedure was performed. 3 g of Ancef and tranexamic acid were administered. In the skilled assistance of a physician email marketing assistant was required throughout the procedure for room set up, soft tissue retraction, wound closure. Without the assistance of a physician email marketing assistant, the surgery would have been much more technically challenging. The surgical site was prepped and draped in the usual sterile fashion I began by making an anterior approach to the hip. I planned my incision much more distally than normal in order to avoid the area of his rash. This made the approach more technically challenging. I was eventually able to position retractors over the inferior and superior femoral neck after dissecting proximally. Because of his severe arthritis and the resultant diminished size of his femoral head, this provided a very narrow corridor for the retractors to be placed into and was also at the top of the wound outside of the area of the skin incision which additionally made it more challenging to place. Because of the challenges associated with getting the retractors into the correct position and ensuring that they were not over the greater trochanter rather than the femoral neck I planned out my capsulotomy with fluoroscopy. Once I would confirmed that I had retractors in the correct position I released the reflected head of rectus femoris and performed a capsulotomy in line with the femoral neck. I found that the capsule was essentially completely adherent to the femoral neck and therefore performed a capsulectomy, excising the capsular tissue. I noted abundant osteophytes around the femoral neck and resected these with a rongeur to attempt to create access to the femoral neck. I then made a provisional neck cut. I extracted the femoral head with significant difficulty as it was very small, and was stuck in place with the large osteophytes which had formed around it. Eventually I was able to remove the femoral head. Retractors were placed on the anterior and posterior wall of the acetabulum. It was challenging to obtain access to the acetabulum because of the residual femoral neck as well as the peripheral osteophytes. I therefore resected additional femoral neck. I began with a size 43 Reamer and introduced this and used it to attempt to debride the peripheral osteophytes. I sequentially moved up to 45, 47, 51, 55, and finally 57 mm reamers. As I moved up debrided less peripheral osteophytes and began to get closer to a pinch fit. Eventually with the 57 mm Reamer I was able to achieve a appropriate pinch fit. I evaluated the reaming position fluoroscopically and determined that his hip center was elevated relative to the contralateral side. Review of his preoperative radiographs indicates that he had significant superior erosion from his arthritis and had a elevated hip center on the operative side prior to surgery. I placed a 58 mm acetabular component in appropriate abduction and anteversion and verified this fluoroscopically. I verified that the cup was tucked under the anterior wall. Because of his elevated hip center I placed a +4 neutral liner to help restore leg length and offset. I additionally placed 2 screws prior to that liner. Screw positions were verified fluoroscopically. I removed additional peripheral osteophytes from around the cup. I injected a portion of a mixture of ropivacaine epinephrine clonidine and Toradol inferiorly near the obturator nerve for postoperative pain control. At this point in time I moved to the femoral side. The radiographs of the cup indicated that the neck cut was likely excessively long so I again resected additional neck with a saw. I released the remainder of the lateral capsule off of the greater trochanter and manipulated the femur out from behind the acetabular component. I positioned the femur in 90? of external rotation with traction off and slowly hyperextended and adducted the hip. I positioned retractors to gain access to the femur. I noted that there was significant remaining bone laterally and resected this with a rongeur to obtain an appropriate start point. I elevated the femur. I externally rotated the femur to 140?. I released the conjoined tendon to allow greater femoral mobility. I still had severe difficulty gaining access to the canal because of interference from his soft tissue. I was able to palpate superiorly and feel a tight band of the TFL which I released off of the pelvis. This improved things somewhat however I continued to have interference from his pannus as well as from the location of my incision which was relatively distal down the femur. I was eventually able to gain access to the canal with a starter broach and broached up to a size 2. Being aware of the excessive femoral neck remaining, I stopped at the size 2 and calcar planed there to reduce the remaining neck. I then additionally broached up to a size 7. I noted that these were passing to easily and removed the broaches from the femur in order to inspect it. At this time I noted that there was a perforation of the lateral cortex. Due to a combination of the patient's large soft tissue burden and some remaining femoral neck, my broaches had assumed a varus position and had extruded out the femoral canal. I returned to a neutral hip position and obtained a radiograph to ensure that the femur was not fractured. There were no fractures visualized. I therefore placed a cerclage cable around the femur in the area of the perforation. I intended this to both protect from creation of a femoral fracture and to block the broaches from exiting the femur during the remainder of the broaching process. I also placed a cerclage cable distally beyond the area of the perforation. I returned to the broaching position, replaced the retractors, and broached up to a size 6. I placed a standard offset neck and a +1.5 head. I removed all the retractors and reduced the hip. I found that it was unstable. Fluoroscopy indicated that it was lacking both leg length and offset. AP hip fluoroscopy indicated that the stem was undersized. I therefore returned to the broaching position, and broached up to a size 8, while ensuring that I was now remaining in the femoral canal despite the significant soft tissue interference forcing my hand into varus while broaching. I repeated the calcar planning process and placed a high offset neck as well as a + 9 head. I removed all retractors, returned to a neutral hip positioning, and reduced the hip. I found that the hip was stable with maximum external rotation to 115? as well as a 45 degree drop test. AP pelvis fluoroscopy indicated grossly appropriate offset however the hip was still slightly short. This was despite utilization of a +4 liner. This at was at least partially due to his preoperative superior erosion due to his arthritic changes. I therefore returned to the broaching position, replaced all of the retractors, placed a size 8 high offset Actis femoral stem, and placed a 36 mm +12 ceramic femoral head onto a clean dry trunnion. I intended this to improve the leg length which was still slightly short relative to the contralateral side. I removed all of the retractors, returned to neutral hip positioning, reduced the hip, placed a dilute mixture of Betadine and peroxide in the wound, and obtained fluoroscopic images. I was satisfied with the leg length and offset on fluoroscopy at that time. It appeared to be equal to the contralateral side. The canal fill was appropriate on AP and 90 degree externally rotated views. The hip was stable with maximum external rotation to 120? as well as a 45 degree drop test. I inspected the fluoroscopic images for any fractures associated with the canal perforation and did not note any. I allowed the Betadine and peroxide mixture to soak for 3 minutes and then copiously irrigated the soft tissues with 3 L of normal saline. I then closed the wound. This consisted of no capsular closure as I had performed a capsulectomy. The TFL fascia was closed with Stratafix. The fat was closed with barbed Quill. The subcutaneous tissue was closed with 2-0 Vicryl. The skin was closed with 3-0 Monocryl. I reinforced my skin closure with tristian. I placed a anyi incisional wound VAC over the tristian and extended this up onto the patient's pannus so that if anything were to hang over the incision, it would be the other portion of the dressing rather than the patient's pannus. The patient was awoken from anesthesia and transferred off of the operating table to a stretcher. He was taken to the PACU. Post-operative Plan for aftercare: 1. Postoperatively he has been having respiratory distress. He is maintaining his oxygen saturations but had a brief period of what appeared to be bronchospasm. He received a DuoNeb as well as Benadryl and epinephrine. He has improved symptomatically and has maintained his oxygen saturations throughout this episode. EKG is currently pending. We are going to have him go to the ICU overnight for closer monitoring. 2. Weightbearing as tolerated with anterior hip precautions 3. I have ordered IV fluconazole to be administered for the remainder of the patient's inpatient stay given his groin rash. Continue with topical antifungals in the left groin as well 4. Will obtain a CBC in the morning. The patient did receive a blood transfusion during the procedure given the duration of the procedure and the blood loss associated with it 5. Aspirin 81 mg twice per day for DVT prophylaxis 6. Multimodal pain regimen. Patient prescribed opioids at baseline for his arthritis which will be continued at his normal doses 7. Follow up with our team in 2 weeks for a wound check. Patient should have a dressing remain in place for a month which extends over his pannus so that it no time we will his pannus be able to come into contact with either his wound or his dressing. He should keep his anyi incisional wound VAC until he follows up with his in clinic and then have it replaced with a 12 inch Aquacel that time which extends from the bottom of his incision up onto his pannus 8. Cefadroxil 500 mg twice per day for 14 days for prophylaxis 9. Discharge to a custodial facility would likely allow for better assistance with hygiene to minimize his risk of contamination of surgical site secondary to his rash. Assistance of physical therapy with assessment of mobility and discussions regarding his home set up will be helpful, however given his condition at the time of his arrival in the hospital I am fairly concerned about his ability to adequately care for himself in his home environment. My preference would therefore be for discharge to a custodial facility
[2023-08-19] MEDS: HYDROMORPHONE 1 MG INJ IV (19:35)
[2023-08-19] MEDS: ONDANSETRON 4 MG/2 ML INJ IV (19:38)
[2023-08-19] MEDS: ALBUTEROL/IPRATROPIUM 3 ML AMPUL INH ×2 (19:55→20:08)
[2023-08-19 20:01] LABS: Hematocrit 37.9 % (41-53); Hemoglobin 12.2 g/dL (13.5-17.5)
--- NOTE | 2023-08-19 20:13 | DI.RAD.S_ITS ---
PROCEDURE: XR CHEST 1V INDICATIONS: Sob TECHNIQUE: One view of the chest was acquired. COMPARISON: None. FINDINGS: Surgical changes and devices: None. Lungs and pleura: Lungs are clear. No pleural effusions or pneumothorax. Mediastinum: Mediastinal contours appear normal. Heart size is normal. Bones and chest wall: No suspicious bony lesions. Overlying soft tissues appear unremarkable. IMPRESSION: No acute cardiopulmonary abnormality is seen. Dictated by: Moshe Alexandre M.D. on 08/19/2023 at 21:41 Approved by: Moshe Alexandre M.D. on 08/19/2023 at 21:42
--- NOTE | 2023-08-19 20:17 | SUR.PHASEI ---
2000: patient c/o sob and appears to be having a bronchospasm; anesthesia to bedside; ambu back in use to assist with suspected bronchospasm; duoneb also initiated. Patient states that he is having trouble breathing; expiratory wheezing noted throughout all lung villegas. VSS. CXR notified of need for state CXR and RT notiified of need for 12 lead EKG. Patient has periods of being calmer and resting with eyes closed.
--- NOTE | 2023-08-19 20:29 | SUR.PHASEI ---
2015: Dr Sheldon giving IV benadryl 25 mg and Epinephrine IV at bedside. PACU nurse notifiing Dr Rosenberg of need for ICU status; hospitalist contacted and Supervisor Fusing [facility] notified of change in status.
[2023-08-19] MEDS: LACTATED RINGERS 1,000 ML 100 ML IV (21:55)
[2023-08-19] MEDS: MIDODRINE HCL 5 MG TABLET 10 MG PO (23:35)
[2023-08-19 23:40] LABS: MRSA (Nasal) PCR Not Detected (Not Detect)
[2023-08-20] VITALS (67 sets, daily range): BP systolic 86–158; BP diastolic 51–119; PULSE 80–126; RESP 12–47; TEMP 36.2–36.7; O2SAT 87–100
--- NOTE | 2023-08-20 06:20 | PC.NURSE ---
Night Note-Received patient from PACU at 2109. He is drowsy, but oriented x4, after initial assessment, he slept hard through the night, rouses, follows directions, has denied pain, ice applied to Lt anterior hip drsg which is CDI, Huber drain patent. Initially on 10L NRB, transferred to 6L HFNC so after admit, SpO2 >97% most of night but patient has apnea, will desat to 70s very briefly, lung sounds clear upper airway, otherwise diminished. SR/ST, BBB. Hypotensive 80s/40s (MAP 58-64) Hospitalist, Dr Ontiveros notified, midodrine ordered, given, BP increased up to 90s-100s/50s-60s, MAP >65-see vital trends. 450ml UOP in Mae.
[2023-08-20] MEDS: CEFAZOLIN VIAL 3 GM in SODIUM CHLORIDE 0.9% 100 ML IV (06:50)
[2023-08-20] MEDS: LACTATED RINGERS 1,000 ML 100 ML IV ×2 (06:52→20:40)
--- NOTE | 2023-08-20 07:49 | P.PN_ITS ---
Subjective Subjective Interval history: He is doing well, no hip pain. He also denies any shortness a breath or chest pain. He was transferred to the ICU last night for postoperative dyspnea but this has resolved overnight. Exam Vital Signs (past 8 hours): - 08/20/23 00:24 08/20/23 01:00 08/20/23 01:00 Temperature 98.1 F Pulse Rate 102 H 104 H Respiratory Rate 19 15 Blood Pressure 104/56 L 107/55 L Pulse Oximetry 94 97 Oxygen Delivery Method High Flow Nasal Cannula Oxygen Flow Rate 6 Fraction of Inspired Oxygen 08/20/23 01:06 08/20/23 01:53 08/20/23 02:00 Temperature Pulse Rate 101 H 95 H 90 Respiratory Rate 14 Blood Pressure 104/59 L Pulse Oximetry 97 96 97 Oxygen Delivery Method High Flow Nasal Cannula Humidification Nasal Cannula Humidification Oxygen Flow Rate 6 5 6 Fraction of Inspired Oxygen 44 40 08/20/23 03:00 08/20/23 04:10 08/20/23 05:00 Temperature 97.1 F L 97.3 F L Pulse Rate 88 92 H Respiratory Rate 16 16 Blood Pressure 103/65 89/54 L Pulse Oximetry 96 96 Oxygen Delivery Method High Flow Nasal Cannula Oxygen Flow Rate Fraction of Inspired Oxygen 08/20/23 05:10 08/20/23 06:00 Temperature 97.6 F Pulse Rate 82 83 Respiratory Rate 20 18 Blood Pressure 117/59 L 111/65 Pulse Oximetry 93 99 Oxygen Delivery Method Oxygen Flow Rate 6 Fraction of Inspired Oxygen Fraction of Inspired Oxygen 40 SaO2/FiO2 Ratio 240 Oxygen Delivery Method High Flow Nasal Cannula Oxygen Flow Rate 6 Narrative Exam Narrative: NAD, fluent speech. Lungs are clear with minimal wheezing. Heart is irregular without murmur. Abdomen is soft, non tender. Extremities are free of edema. Left hip incisions are unremarkable. Objective Labs 08/20/23 08:55 08/20/23 08:55 Labs: Laboratory Results - last 24 hr 08/19/23 08/19/23 08/19/23 13:48 19:30 21:56 Hgb 12.2 L Hct 37.9 L PT 11.7 INR 1.0 APTT 36 Nasal Screen MRSA (PCR) Not detected Blood Type O Positive Antibody Screen Negative Crossmatch See Detail [facility] Medical History Diabetes mellitus HLD (hyperlipidemia) HTN (hypertension) Surgical History History of tonsillectomy (~1961) History of lumbar surgery Social History household members: none Smoking Status: Former smoker alcohol intake: never Assessment & Plan Assessment & Plan narrative: 1. Subacute left hip fracture, present on admission and active. 2. Hyponatremia, present on admission and active. 3. Diabetes mellitus 2, present on admission and active. 4. Hypertension, present on admission and active. 5. Hyperlipidemia, present on admission and active. 6. Tinea corporis, present on admission and active. Continue Nystatin BID. 7. Postoperative respiratory distress, new and resolved. 8. Hyperkalemia, likely hemolyzed. New and possibly active. Plan: -PT and OT. -transfer out of ICU, monitored breathing. -repeat potassium. -resume all chronic medications. Full code. Time Spent With Patient Time with patient: 30 to 49 minutes with 50% spent counseling/coordinating care
[2023-08-20] MEDS: DOCUSATE 100 MG CAPSULE PO ×2 (08:10→20:39)
[2023-08-20] MEDS: ASPIRIN EC 81 MG TABLET PO ×2 (08:11→20:55)
[2023-08-20] MEDS: METHADONE 10 MG TABLET PO ×2 (08:11→20:40)
[2023-08-20] MEDS: GABAPENTIN 600 MG TABLET PO ×4 (08:11→20:40)
[2023-08-20] MEDS: MIDODRINE HCL 5 MG TABLET 10 MG PO (08:15)
[2023-08-20] MEDS: INSULIN GLARGINE 100 UNIT/ML 3ML PEN 9 UNIT SUBCUT ×2 (08:22→20:59)
[2023-08-20] MEDS: INSULIN LISPRO 100 UNIT/ML 3ML VIAL SUBCUT (08:22)
--- NOTE | 2023-08-20 09:38 | PM.PNPO.1 ---
Subjective Subjective Interval history: Patient is found sitting up comfortably eating his breakfast today. Said he was able to sleep through the night without any pain. Denies any nausea vomiting fever or chills. Denies any numbness tingling down his left leg. Exam Vital Signs (past 8 hours): - 08/20/23 01:53 08/20/23 02:00 08/20/23 03:00 Temperature 97.1 F L Pulse Rate 95 H 90 88 Respiratory Rate 14 16 Blood Pressure 104/59 L 103/65 Pulse Oximetry 96 97 96 Oxygen Delivery Method Nasal Cannula Humidification Oxygen Flow Rate 5 6 Fraction of Inspired Oxygen 40 08/20/23 04:10 08/20/23 05:00 08/20/23 05:10 Temperature 97.3 F L 97.6 F Pulse Rate 92 H 82 Respiratory Rate 16 20 Blood Pressure 89/54 L 117/59 L Pulse Oximetry 96 93 Oxygen Delivery Method High Flow Nasal Cannula Oxygen Flow Rate Fraction of Inspired Oxygen 08/20/23 06:00 08/20/23 08:00 Temperature 97.1 F L Pulse Rate 83 84 Respiratory Rate 18 16 Blood Pressure 111/65 113/56 L Pulse Oximetry 99 94 Oxygen Delivery Method Oxygen Flow Rate 6 Fraction of Inspired Oxygen Fraction of Inspired Oxygen 40 SaO2/FiO2 Ratio 240 Oxygen Delivery Method High Flow Nasal Cannula Oxygen Flow Rate 6 Narrative Exam Narrative: Xavier dressing appears to be well-maintained. No pain to compression along the posterior thigh or calf. Sensation is grossly intact of the left leg. Able to dorsiflex and plantar flex against resistance left ankle. Resp Effort & Inspection: normal respiratory effort and able to speak in complete sentences Objective Labs 08/19/23 19:30 08/19/23 04:11 Labs: Laboratory Results - last 24 hr 08/19/23 08/19/23 08/19/23 13:48 19:30 21:56 Hgb 12.2 L Hct 37.9 L PT 11.7 INR 1.0 APTT 36 Nasal Screen MRSA (PCR) Not detected Blood Type O Positive Antibody Screen Negative Crossmatch See Detail [facility] Medical History Diabetes mellitus HLD (hyperlipidemia) HTN (hypertension) Surgical History History of tonsillectomy (~1961) History of lumbar surgery Social History household members: none Smoking Status: Former smoker alcohol intake: never Assessment & Plan Post-op Postoperative Procedures: Procedures Operation Date: 08/19/23 13:45 Actual Procedure Side Surgeon p Total Hip Arthroplasty/Anterior Approach Left Lakhwinder Rosenberg MD Postoperative day: 1 Postoperative status: doing well Postoperative plan: routine post-op care Postoperative plan narrative: * Weightbearing as tolerated with anterior hip precautions * IV fluconazole to be administered for the remainder of the patient's inpatient stay given his groin rash. Continue with topical antifungals in the left groin as well * CBC pending. * Aspirin 81 mg twice per day for DVT prophylaxis * Multimodal pain regimen. Patient prescribed opioids at baseline for his arthritis which will be continued at his normal doses * Follow up with our team in 2 weeks for a wound check. Patient should have a dressing remain in place for a month which extends over his pannus so that it no time we will his pannus be able to come into contact with either his wound or his dressing. He should keep his XAVIER incisional wound VAC until he follows up with his in clinic and then have it replaced with a 12 inch Aquacel that time which extends from the bottom of his incision up onto his pannus. * Cefadroxil 500 mg twice per day for 14 days for prophylaxis. * Discharge to a penitentiary facility would likely allow for better assistance with hygiene to minimize his risk of contamination of surgical site secondary to his rash. Assistance of physical therapy with assessment of mobility and discussions regarding his home set up will be helpful, however given his condition at the time of his arrival in the hospital we am fairly concerned about his ability to adequately care for himself in his home environment. Our preference would therefore be for discharge to a penitentiary facility. Time Spent With Patient Time with patient: less than 15 minutes
[2023-08-20 09:42] LABS: Add Manual Diff / Slide Review NO; Basophils Absolute Auto 0 /uL (0-100); Basophils Percent Auto 0.1 % (0-2); Eosinophils Absolute Auto 0 /uL (0-450); Hematocrit 30.4 % (41-53); Lymphocytes Absolute Auto 1500 /uL (1100-4500); Lymphocytes Percent Auto 10.9 % (25-40); Mean Corpuscular HGB Conc 32.8 % (30-36); Mean Corpuscular Hemoglobin 28.8 PG (26-34); Mean Corpuscular Volume 87.9 fL (80-100); Monocytes Absolute Auto 1000 /uL (0-900); Neutrophils Absolute Auto 11400 /uL (1500-7000); Platelet Count 348 X10^3/uL (150-400); Red Blood Cell Count 3.46 X10^6/uL (4.5-5.9); Red Cell Distribution Width 15.8 % (11.6-14.8); White Blood Cell Count 13.9 X10^3/uL (4.5-11.0)
[2023-08-20 09:50] LABS: BUN Creatinine Ratio 28.8 (6-22); Blood Urea Nitrogen 23 mg/dL (9-20); Calcium 7.8 mg/dL (8.4-10.2); Carbon Dioxide 23 mmol/L (22-32); Chloride 103 mmol/L (98-107); Estimated Glomerular Filt Rate > 60 mL/min (>60); Glucose 199 mg/dL (80-110); HEMOLYSIS < 15 (0-50); Sodium 135 mmol/L (137-145)
[2023-08-20 09:53] LABS: Potassium 5.8 mmol/L (3.4-5.1)
[2023-08-20] MEDS: ACETAMINOPHEN 325 MG TABLET 650 MG PO ×3 (10:09→23:55)
--- NOTE | 2023-08-20 10:10 | PT.IIE ---
Current Diagnoses Fracture of unspecified part of neck of left femur, initial encounter for closed fracture (08/17/23) Surgery Performed Operation Date: 08/19/23 13:45 Actual Procedures p Total Hip Arthroplasty/Anterior Approach(Left) - Lakhwinder Rosenberg MD Surgical History (Last Reviewed 08/20/23 @ 07:50 by Kurt Sharpe MD) History of lumbar surgery History of tonsillectomy (~1961) Medical History (Last Reviewed 08/20/23 @ 07:50 by Kurt Sharpe MD) Diabetes mellitus HLD (hyperlipidemia) HTN (hypertension) Physical Therapy Inpatient Evaluation/Re-Eval M1 PT/OT-IP Prior Functional Status Start: 08/20/23 13:11 Freq: NEEDED Status: Active Protocol: Document 08/20/23 10:10 AB (Rec: 08/20/23 13:34 AB [id number]) Medical Review Prior Functional Status Medical History Reviewed Yes Communication able to make needs known Mobility and Gait pt s/p fall 08/04/23 and admitted at [facility]. pt d/c'd to [facility] rehab afterwards. pt was modified independent with all mobilities and ambulation using a 4WW prior to fall. Prior Functional Level (Other details) pt s/p fall 08/04/23 and admitted at [facility]. pt d/c'd to [facility] rehab afterwards. pt continue to has L hip pain and had an outpt hip xray and showed L hip fx. pt admitted here at [facility] and pt underwent L NATALIE anterior 08/19/23. pt also had a L displaced radial head fx per [facility] nurse. Social History Household Members none Living Arrangements Mobile home Number of Floors (Floors) One Floor Number of Stairs To Enter/Railing? 4 steps R rail ascending Home Environment Standard Height Toilet,Built- In Shower Seat Home Equipment Four Wheel Walker,Hand Held Shower,Grab Bars Near Toilet, Grab Bars In Shower Additional Social History Comment pt has a walk in tub shower pt stated that he has an adjustable bed M2 PT-IP Current Condition Start: 08/20/23 13:11 Freq: NEEDED Status: Active Protocol: Document 08/20/23 10:10 AB (Rec: 08/20/23 13:34 AB [id number]) Physical Therapy Current Condition Current Condition Evaluation Date 08/20/23 Treatment Diagnosis s/p L NATALIE ant; difficulty in walking Onset Date 08/17/23 M3 PT-IP Subjective Start: 08/20/23 13:11 Freq: NEEDED Status: Active Protocol: Document 08/20/23 10:10 AB (Rec: 08/20/23 13:34 AB [id number]) Subjective Physical Therapy Visit Type Type Initial Evaluation Visit Start Time 10:10 Visit Stop Time 11:30 Notes PT eval received and EMR reviewed. pt s/p L NATALIE anterior 08/19/23. from doctor's note: L radial head fx mentioned but no other guidelines/precautions indicated. Talked to pt and stated that he was using a sling at [facility] and uses a platform walker for walking. Called [facility] rehab and nurse stated that pt does not use a sling and is allowed to put weight on LUE since there is no NWB order. Talked with hospitalist Dr. Sharpe to clarify and stated that pt is WBAT on LUE and no restrictions. informed pt. Number of COMPENSATION SUPERVISOR Visits 0 Physical Therapy Visit Comments Patient Comments agreeable to do PT Therapy Pain Assessment Pain When Pain Assessed At Rest Pain Present Pain Present Pain Reported Location Left Hip Intensity 7 Scale Used increases to 10/10 with mobility Pain Management Techniques Apply Cold,Distraction, Modification of Treatment,Re- positioning,Timing of Activity with Medications M4 PT-IP Mobility and Gait Start: 08/20/23 13:11 Freq: NEEDED Status: Active Protocol: Document 08/20/23 10:10 AB (Rec: 08/20/23 13:34 AB [id number]) PT-Bed Mobility Assessment Supine to Sit Supine to Sit Maximum Assistance,Total Assistance,2 Person Assistance ,Head of Bed Elevated,Bedrails Sit to Supine Sit to Supine Total Assistance,2 Person Assistance Scooting Scooting Up and Down in Bed Dependent PT-Transfer Assessment Sit to and From Stand Sit to and from Stand Maximum Assistance,2 Person Assistance,Use of Upper Extremities Equipment Transfer Assistive Device Gait Belt,Front Wheeled Walker Orthotic/Prosthetic Devices or Brace: No Comments Mobility Comments pt supine ni bed and agreeable to do PT. obtained PLOF and home set up from pt. BP in supine: 112/53. O2 sat with 3 1/2 L: 95%. decreases to 89% at RA. HR increases to 130s with mobility. post-op folder provided to pt and reviewed contents. educated pt regarding L anterior hip precautions. informed pt regarding LUE WBAT and not restrictions per hospitalist. pt completed supine to sit max A x 2 to total A x 2 and max cues. HOB elevated and pt used bed rail. pt required max A for sitting on EOB with increase lateral side lean to the R. pt c/o increase L hip pain and tends to lean away from L side. total Ax 2 for scooting to EOB. BP sittin/62. completed sit to stand max A x 2 and max cues. able to stand requiring max A x 2 for balance using fWW for support. pt sat back down immediately upon standing with (+) LE buckling. pt rested. agreed to stand again and educated on quads activation. pt completed sit to stand max Ax 2 and max cues. pt able to stand ~ 8 sec and instructed to sit back down due to unsteadiness and LE giving out. pt c/o increase L hip pain. assisted pt back to bed total Ax 3. positioned pt in bed total Ax 3. call light and table placed within reach. Gait Assessment Comments Gait Comments unable at this time PT-Balance Assessment Sitting Balance and Reactions Static Sitting Balance Ability Fair Dynamic Sitting Balance Ability Poor Standing Balance and Reactions Static Standing Balance Ability Poor Dynamic Standing Balance Ability Poor Device Used FWW M5 PT-IP Objective Assessments Start: 08/20/23 13:11 Freq: NEEDED Status: Active Protocol: Document 08/20/23 10:10 AB (Rec: 08/20/23 13:34 AB [id number]) Orientation Orientation/Cognition Level of Alertness Alert Orientation Name,Place,Situation Language Function Ability No Deficits Noted Safety Awareness Decreased Safety Awareness Strength Lower Extremity Strength Assessment Bilaterally Impaired Comments Strength Comments LLE: 3-/5 RLE : 3+/5 Sensation Assessment Sensation Sensation Description Numbness Comments Sensation Comments B lower leg neuropathy Muscle Tone Muscle Tone WNL Yes M6 PT-IP Treatment Start: 08/20/23 13:11 Freq: NEEDED Status: Active Protocol: Document 08/20/23 10:10 AB (Rec: 08/20/23 13:34 AB [id number]) Physical Therapy Treatment Education Education Provided Precautions,Weight Bearing Status,Post-Op Packet,Safety M7 PT-IP Assessment and Plan Start: 08/20/23 13:11 Freq: NEEDED Status: Active Protocol: Document 08/20/23 10:10 AB (Rec: 08/20/23 13:34 AB [id number]) PT Summary Assessment and Plan Potential Rehabilitation Potential Fair Status of Condition at Evaluation Evolving Summary Impairments Pain,ROM,Strength,Balance, Coordination,Sensation,Tone, Cognition,Bed Mobility, Transfers,Gait,Activity Tolerance Assessment Summary pt is a 73 y/o M s/p fall sustaining a L radial head fx and L hip fx. L radial head fx is non-operative and per hositalist WBAT and no restrictions. Pt underwent L NATALIE anterior approach for the L hip fracture yesterday. pt has L hip anterior precautions and is WBAT. pt requiring max A x 2 to total Ax 2-3 with mobilities and unable to ambulate at this time. (+) LE buckling during standing. recommending mechanical lift transfers with nursing staff. will continue to assess progress. pt will require SNF rehab. Goals Bed Mobility Goal Moderate Assistance Transfer Goal Moderate Assistance,Front Wheeled Walker Gait Goal Moderate Assistance,Front Wheel Walker Gait Distance 25 Other Goals improve bed mobility, transfers and ambulation using fWW 50 ft SBA Days to Meet Goals 10 Frequency of Treatment Frequency Of Treatment Twice a Day Treatment Plan Physical Therapy Treatment Plan Bed Mobility Training,Transfer Training,Gait Training, Therapeutic Exercise,Balance Retraining,Post Op Education, Discharge Planning,Hot or Cold Pack,Neuromuscular Re-ed, Coordination Retraining,Manual Therapy Precautions Anterior Hip Precautions No Hip Extension,No Hip External Rotation Weight Bearing Status Weight Bearing Status Weight Bear as Tolerated Allowed Weight Bearing Amount (enter % LUE/LLE WBAT or #) (%) Recommendations To Nursing Amount of Assist Needed Mechanical Lift Discharge Recommendations PT Discharge Recommendations SNF Rehab Transportation Needs at Discharge Wheelchair/Cabulance,Stretcher /Ambulance
--- NOTE | 2023-08-20 12:02 | CM.DPC ---
DCP COnt: Per MD, pt tolerated surgery well but had some desatting and was moved to ICU for HHFNC and pt now tolerating room air and making improvements. PT/OT ordered and pending. Plan: SW to follow closely for PT/OT eval towards updating [facility] to obtain return [employer] auth for SNF. PASRR not needed unless significant change to meds or mentation. ANGELA Beltrán
[2023-08-20] MEDS: IBUPROFEN 600 MG TABLET PO ×3 (12:03→23:55)
[2023-08-20] MEDS: OXYCODONE IR 5 MG TABLET PO ×2 (12:04→20:39)
--- NOTE | 2023-08-20 13:30 | PT.IPTN ---
Current Diagnoses Fracture of unspecified part of neck of left femur, initial encounter for closed fracture (08/17/23) Surgery Performed Operation Date: 08/19/23 13:45 Actual Procedures p Total Hip Arthroplasty/Anterior Approach(Left) - Lakhwinder Rosenberg MD Physical Therapy Treatment Note M2 PT-IP Current Condition Start: 08/20/23 13:11 Freq: NEEDED Status: Active Protocol: Document 08/20/23 10:10 AB (Rec: 08/20/23 13:34 AB [id number]) Physical Therapy Current Condition Current Condition Evaluation Date 08/20/23 Treatment Diagnosis s/p L NATALIE ant; difficulty in walking Onset Date 08/17/23 M3 PT-IP Subjective Start: 08/20/23 13:11 Freq: NEEDED Status: Active Protocol: Document 08/20/23 14:13 TS (Rec: 08/20/23 14:27 TS [id number]) Subjective Physical Therapy Visit Type Type Treatment Note Visit Start Time 13:30 Visit Stop Time 14:10 Notes PT eval received and EMR reviewed. pt s/p L NATALIE anterior 08/19/23. from doctor's note: L radial head fx mentioned but no other guidelines/precautions indicated. Talked to pt and stated that he was using a sling at [facility] and uses a platform walker for walking. Called [facility] rehab and nurse stated that pt does not use a sling and is allowed to put weight on LUE since there is no NWB order. Talked with hospitalist Dr. Sharpe to clarify and stated that pt is WBAT on LUE and no restrictions. informed pt. Number of REBEAMER Visits 1 Physical Therapy Visit Comments Patient Comments Pt found resting in bed, is motivated to work with PT. Is agreeable to trial STS machine . When laying back into bed pt reported hearing a pop in L hip, pt denied having pain. Nursing was in room when it occured. Therapy Pain Assessment Pain When Pain Assessed At Rest Pain Present Pain Present Pain Reported M4 PT-IP Mobility and Gait Start: 08/20/23 13:11 Freq: NEEDED Status: Active Protocol: Document 08/20/23 14:13 TS (Rec: 08/20/23 14:27 TS [id number]) PT-Bed Mobility Assessment Supine to Sit Supine to Sit Maximum Assistance,2 Person Assistance,Head of Bed Elevated,Bedrails Sit to Supine Sit to Supine Total Assistance,2 Person Assistance Scooting Scooting to Edge of Bed Minimal Assistance Scooting Up and Down in Bed Dependent PT-Transfer Assessment Sit to and From Stand Sit to and from Stand Maximum Assistance,2 Person Assistance,Use of Upper Extremities Equipment Transfer Assistive Device Gait Belt,Front Wheeled Walker Orthotic/Prosthetic Devices or Brace: No Comments Mobility Comments Pt on 2L of o2, HR 90-100 at rest. Supine to sit MaxA x2 with EQUIPMENT APPLICATION SPECIALIST assist and HOB elevated for uprighting trunk. Pt scooted to EOB with Zaki and bed tilted 5D. STS machine used x2 with pt, he tolerated well and demonstrated strength in LE's to assist in standing. L ankle tends to invert, requires assist for feet underneath him in standing. Sit to supine total assist x3 with RN and ARTS AND CRAFTS TEACHER, pt reported a pop in L hip area when laying back into bed, pt reported not having pain. Pt was left in bed, in good spirits, nursing tending to needs. PT-Balance Assessment Sitting Balance and Reactions Static Sitting Balance Ability Fair Dynamic Sitting Balance Ability Poor Standing Balance and Reactions Static Standing Balance Ability Poor Dynamic Standing Balance Ability Poor Device Used STS Machine M5 PT-IP Objective Assessments Start: 08/20/23 13:11 Freq: NEEDED Status: Active Protocol: Document 08/20/23 10:10 AB (Rec: 08/20/23 13:34 AB [id number]) Orientation Orientation/Cognition Level of Alertness Alert Orientation Name,Place,Situation Language Function Ability No Deficits Noted Safety Awareness Decreased Safety Awareness Strength Lower Extremity Strength Assessment Bilaterally Impaired Comments Strength Comments LLE: 3-/5 RLE : 3+/5 Sensation Assessment Sensation Sensation Description Numbness Comments Sensation Comments B lower leg neuropathy Muscle Tone Muscle Tone WNL Yes M6 PT-IP Treatment Start: 08/20/23 13:11 Freq: NEEDED Status: Active Protocol: Document 08/20/23 14:13 TS (Rec: 08/20/23 14:27 TS [id number]) Physical Therapy Treatment Education Education Provided Precautions,Weight Bearing Status,Post-Op Packet,Safety M7 PT-IP Assessment and Plan Start: 08/20/23 13:11 Freq: NEEDED Status: Active Protocol: Document 08/20/23 14:13 TS (Rec: 08/20/23 14:27 TS [id number]) PT Summary Assessment and Plan Potential Rehabilitation Potential Fair Summary Impairments Pain,ROM,Strength,Balance, Coordination,Sensation,Tone, Cognition,Bed Mobility, Transfers,Gait,Activity Tolerance Progress Towards Goals Slow Progress due to Pain,Slow Progress due to Activity Tolerance Assessment Summary Brayan is making slow progress with his mobility. He requires MaxA x2 for supine to sit to the EOB of the bed. STS machine was used to assist pt into standing x2PA. He tolerated the STS machine well and was thankful for the help . Sit to supine back into bed pt reported hearing a pop when LLE was internally rotated but denied pain. PT continues to recommend SNF rehab at this time. Goals Bed Mobility Goal Moderate Assistance Transfer Goal Moderate Assistance,Front Wheeled Walker Gait Goal Moderate Assistance,Front Wheel Walker Gait Distance 25 Other Goals improve bed mobility, transfers and ambulation using fWW 50 ft SBA Days to Meet Goals 10 Frequency of Treatment Frequency Of Treatment Twice a Day Treatment Plan Physical Therapy Treatment Plan Bed Mobility Training,Transfer Training,Gait Training, Therapeutic Exercise,Balance Retraining,Post Op Education, Discharge Planning,Hot or Cold Pack,Neuromuscular Re-ed, Coordination Retraining,Manual Therapy Other Recommendations and Next Treatment Transfers with STS machine. Focus Precautions Anterior Hip Precautions No Hip Extension,No Hip External Rotation Weight Bearing Status Weight Bearing Status Weight Bear as Tolerated Allowed Weight Bearing Amount (enter % LUE/LLE WBAT or #) (%) Recommendations To Nursing Amount of Assist Needed Mechanical Lift Discharge Recommendations PT Discharge Recommendations SNF Rehab Transportation Needs at Discharge Wheelchair/Cabulance,Stretcher /Ambulance
[2023-08-20 14:34] LABS: HEMOLYSIS < 15 (0-50); Potassium 4.9 mmol/L (3.4-5.1)
[2023-08-20] MEDS: FLUCONAZOLE 400 MG/200 ML PIGGYBACK 100 MG IV (20:38)
[2023-08-20] MEDS: ATORVASTATIN 20 MG TABLET 40 MG PO (20:39)
--- NOTE | 2023-08-20 22:03 | PC.NURSE ---
Pt. kept desatting to the 80's, 02 2L high flow applied.
[2023-08-21] VITALS (61 sets, daily range): BP systolic 89–155; BP diastolic 54–92; PULSE 74–113; RESP 12–38; TEMP 36.5–36.9; O2SAT 83–98
[2023-08-21] MEDS: IBUPROFEN 600 MG TABLET PO ×4 (06:12→23:55)
[2023-08-21] MEDS: ACETAMINOPHEN 325 MG TABLET 650 MG PO ×4 (06:13→23:54)
[2023-08-21] MEDS: LACTATED RINGERS 1,000 ML 100 ML IV (06:53)
--- NOTE | 2023-08-21 08:12 | P.PN_ITS ---
Subjective Subjective Interval history: This is a pleasant 73-year-old male who had an undiagnosed hip fracture in context of severe arthritis of the left hip over the last 2 weeks. The patient was being cared for at [facility] after an ED visit at [facility]. Next revealed a probable femoral neck fracture. He underwent a left total hip replacement due to the severity of arthritis in addition to the fracture. He did have postoperative respiratory distress for unclear reasons which resolved after 1 night of monitoring in the emergency department. He will likely return to [facility] within the next 1-2 days for ongoing rehabilitation. There was also question of a left radial head fracture on x-ray, this is essentially asymptomatic and he has been using his elbow without restriction. S: He is doing well and denies dyspnea or chest pain. His left hip pain is tolerable and he is using oral medications. He denies any abdominal pain. He has a mild resting tachycardia and saturations 91% on 1-2 L today. Exam Vital Signs (past 8 hours): - 08/21/23 00:30 08/21/23 00:30 08/21/23 00:30 Pulse Rate 89 83 Respiratory Rate 16 28 H Blood Pressure 130/83 Pulse Oximetry 83 L 92 08/21/23 01:00 08/21/23 01:00 08/21/23 01:00 Pulse Rate 89 84 Respiratory Rate 16 20 Blood Pressure 128/90 Pulse Oximetry 94 87 L 08/21/23 01:30 08/21/23 01:30 08/21/23 01:30 Pulse Rate 93 H 81 Respiratory Rate 25 H 21 Blood Pressure 124/85 Pulse Oximetry 90 L 92 08/21/23 02:00 08/21/23 02:00 08/21/23 02:00 Pulse Rate 83 85 Respiratory Rate 22 13 Blood Pressure 142/88 H Pulse Oximetry 92 97 08/21/23 02:30 08/21/23 02:30 08/21/23 02:30 Pulse Rate 97 H 82 Respiratory Rate 17 25 H Blood Pressure 133/85 Pulse Oximetry 91 91 08/21/23 03:00 08/21/23 03:05 08/21/23 03:05 Pulse Rate 86 87 Respiratory Rate 14 14 Blood Pressure 133/80 Pulse Oximetry 94 95 08/21/23 03:30 08/21/23 03:30 08/21/23 03:30 Pulse Rate 85 76 Respiratory Rate 12 20 Blood Pressure 129/78 Pulse Oximetry 95 89 L 08/21/23 04:00 08/21/23 04:00 08/21/23 04:00 Pulse Rate 92 H Respiratory Rate 18 Blood Pressure 135/80 135/80 Pulse Oximetry 92 08/21/23 04:00 Pulse Rate 74 Respiratory Rate 23 Blood Pressure Pulse Oximetry 93 Fraction of Inspired Oxygen 28 SaO2/FiO2 Ratio 332 Oxygen Delivery Method Nasal Cannula Oxygen Flow Rate 2 Narrative Exam Narrative: NAD, alert and oriented. Fluent speech. 2L O2. Lungs are clear, normal rate and effort. Heart is regular, no murmur gallop or rub. Abdomen is soft, non distended. Extremities are free of edema. Left hip wound is unremarkable, some early bruising. Objective Labs 08/21/23 08:33 08/20/23 14:10 Labs: Laboratory Results - last 24 hr 08/20/23 08/20/23 08:55 14:10 WBC 13.9 H D RBC 3.46 L Hgb 10.0 L Hct 30.4 L MCV 87.9 MCH 28.8 MCHC 32.8 RDW 15.8 H Plt Count 348 Neut % (Auto) 82.0 H D Lymph % (Auto) 10.9 L D [place] % (Auto) 7.0 Eos % (Auto) 0.0 L Baso % (Auto) 0.1 Neut # (Auto) 98808 H Lymph # (Auto) 1500 [place] # (Auto) 1000 H Eos # (Auto) 0 Baso # (Auto) 0 Sodium 135 L Potassium 5.8 H D 4.9 Chloride 103 Carbon Dioxide 23 BUN 23 H Creatinine 0.80 Estimated GFR > 60 BUN/Creatinine Ratio 28.8 H Glucose 199 H Calcium 7.8 L PFSH Medical History Diabetes mellitus HLD (hyperlipidemia) HTN (hypertension) Surgical History History of tonsillectomy (~1961) History of lumbar surgery Social History household members: none Smoking Status: Former smoker alcohol intake: never Assessment & Plan Assessment & Plan narrative: 1. Subacute left hip fracture, present on admission and active. 2. Hyponatremia, present on admission and active. 3. Diabetes mellitus 2, present on admission and active. 4. Hypertension, present on admission and active. 5. Hyperlipidemia, present on admission and active. 6. Tinea corporis, present on admission and active. Continue Nystatin BID. 7. Postoperative respiratory distress, new and resolved. 8. Hyperkalemia, likely hemolyzed. Normal on repeat. 9. Tachycardia and hypoxia today, new and active. Plan: -CXR today, wean O2 as able. -PT and OT. -transfer out of ICU, monitored breathing. -follow lytes. -resume all chronic medications. Full code. DISPO: [facility] likely 1-2 days. He came from there prior to this admission. Time Spent With Patient Time with patient: 30 to 49 minutes with 50% spent counseling/coordinating care
[2023-08-21 08:39] LABS: Add Manual Diff / Slide Review NO; Basophils Absolute Auto 100 /uL (0-100); Basophils Percent Auto 1.2 % (0-2); Eosinophils Absolute Auto 0 /uL (0-450); Eosinophils Percent Auto 0.2 % (2-4); Hematocrit 25.6 % (41-53); Hemoglobin 8.5 g/dL (13.5-17.5); Lymphocytes Absolute Auto 2600 /uL (1100-4500); Lymphocytes Percent Auto 28.2 % (25-40); Mean Corpuscular HGB Conc 33.2 % (30-36); Mean Corpuscular Hemoglobin 28.8 PG (26-34); Mean Corpuscular Volume 86.7 fL (80-100); Monocytes Absolute Auto 900 /uL (0-900); Neutrophils Absolute Auto 5500 /uL (1500-7000); Neutrophils Percent Auto 60.4 % (50-75); Platelet Count 299 X10^3/uL (150-400); Red Blood Cell Count 2.95 X10^6/uL (4.5-5.9); Red Cell Distribution Width 16.4 % (11.6-14.8); White Blood Cell Count 9.1 X10^3/uL (4.5-11.0)
[2023-08-21] MEDS: METHADONE 10 MG TABLET PO ×2 (08:39→20:20)
[2023-08-21] MEDS: GABAPENTIN 600 MG TABLET PO ×4 (08:39→20:21)
[2023-08-21] MEDS: DOCUSATE 100 MG CAPSULE PO ×2 (08:39→20:20)
[2023-08-21] MEDS: ASPIRIN EC 81 MG TABLET PO ×2 (08:39→20:20)
[2023-08-21] MEDS: INSULIN GLARGINE 100 UNIT/ML 3ML PEN 9 UNIT SUBCUT ×2 (08:40→20:22)
--- NOTE | 2023-08-21 09:24 | DI.RAD.S_ITS ---
PROCEDURE: XR CHEST 1V INDICATIONS: dyspnea TECHNIQUE: One view of the chest was acquired. COMPARISON: [facility], CR, XR CHEST 1V, 08/19/2023, 20:17. FINDINGS: Surgical changes and devices: None. Lungs and pleura: On this semiupright portable chest examination, no large pneumothorax or large pleural effusions are seen. No focal infiltrates are seen. Low lung volumes are noted. This causes a crowded appearance to the lung markings and limits evaluation. Mediastinum: Mediastinal contours appear normal. Heart size is normal. Bones and chest wall: No suspicious bony lesions. Overlying soft tissues appear unremarkable. IMPRESSION: Limited portable chest examination, without a significant cardiopulmonary abnormality identified. Dictated by: Luis Villarreal M.D. on 08/21/2023 at 8:55 Approved by: Luis Villarreal M.D. on 08/21/2023 at 8:56
--- NOTE | 2023-08-21 10:00 | PC.NURSE ---
Addendum entered by Lisandra Bethea R.N. 08/21/23 12:15: Patient worked with physical therapy and states that he had a hard time getting his legs over the side of the bed. He is sitting up in high-fowlers and tolerating his lunch. Patients blood sugar is 106 and no insulin needed. Original Note: Patient has multiple abrasions and some bruises from his fall. His dressing to l.anterior hip surgery is cdi. Patient has some redness in his folds that we are keeping dry. He has been working with physical therapy and tolerates this. Blood pressure 98/54, lisinopril held. He is resting comfortably.
[2023-08-21] MEDS: FUROSEMIDE 40 MG/4 ML VIAL IV (11:21)
--- NOTE | 2023-08-21 11:46 | PM.PNPO.1 ---
Subjective Subjective Interval history: Patient with a left femoral neck fracture status post left total hip arthroplasty. Patient is doing well today. Complaining of some pain to the hip. States he had a little bit more difficulty with ambulation today compared to yesterday. But overall he is doing. Exam Vital Signs (past 8 hours): - 08/21/23 04:00 08/21/23 04:00 08/21/23 04:00 Pulse Rate 92 H Respiratory Rate 18 Blood Pressure 135/80 135/80 Pulse Oximetry 92 Oxygen Flow Rate 08/21/23 04:00 08/21/23 04:00 08/21/23 04:30 Pulse Rate 74 Respiratory Rate 23 Blood Pressure 105/62 135/87 Pulse Oximetry 93 Oxygen Flow Rate 08/21/23 04:30 08/21/23 04:30 08/21/23 05:00 Pulse Rate 77 89 Respiratory Rate 34 H 15 Blood Pressure 136/83 Pulse Oximetry 90 L 95 Oxygen Flow Rate 08/21/23 05:00 08/21/23 05:00 08/21/23 05:30 Pulse Rate 78 92 H Respiratory Rate 21 15 Blood Pressure 135/85 Pulse Oximetry 91 94 Oxygen Flow Rate 08/21/23 05:30 08/21/23 05:30 08/21/23 06:00 Pulse Rate 81 91 H 95 H Respiratory Rate 20 18 15 Blood Pressure Pulse Oximetry 91 85 L 94 Oxygen Flow Rate 08/21/23 06:00 08/21/23 06:00 08/21/23 06:25 Pulse Rate 80 Respiratory Rate 19 Blood Pressure 145/85 H 137/89 Pulse Oximetry 91 Oxygen Flow Rate 08/21/23 06:25 08/21/23 06:30 08/21/23 06:30 Pulse Rate 81 85 Respiratory Rate 17 19 Blood Pressure 139/86 Pulse Oximetry 92 91 Oxygen Flow Rate 08/21/23 06:30 08/21/23 07:00 08/21/23 07:00 Pulse Rate 98 H 97 H Respiratory Rate 14 15 Blood Pressure 143/92 H Pulse Oximetry 94 89 L Oxygen Flow Rate 08/21/23 07:00 08/21/23 07:30 08/21/23 07:30 Pulse Rate 86 95 H Respiratory Rate 24 15 Blood Pressure 111/67 Pulse Oximetry 88 L 92 Oxygen Flow Rate 08/21/23 07:30 08/21/23 07:57 08/21/23 07:57 Pulse Rate 86 98 H Respiratory Rate 23 28 H Blood Pressure 112/57 L Pulse Oximetry 87 L 96 Oxygen Flow Rate 08/21/23 08:00 08/21/23 08:00 08/21/23 08:00 Pulse Rate 100 H 104 H Respiratory Rate 20 24 Blood Pressure 112/57 L 135/80 Pulse Oximetry 96 93 Oxygen Flow Rate 0 08/21/23 08:00 08/21/23 08:01 08/21/23 08:01 Pulse Rate 88 88 Respiratory Rate 19 34 H Blood Pressure 98/54 L Pulse Oximetry 92 92 Oxygen Flow Rate 08/21/23 08:30 08/21/23 08:31 08/21/23 08:31 Pulse Rate 108 H 87 Respiratory Rate 19 21 Blood Pressure 148/80 H Pulse Oximetry 95 92 Oxygen Flow Rate 08/21/23 09:00 08/21/23 09:00 08/21/23 09:00 Pulse Rate 89 109 H Respiratory Rate 20 20 Blood Pressure 129/83 Pulse Oximetry 93 95 Oxygen Flow Rate 08/21/23 09:30 08/21/23 09:30 08/21/23 09:30 Pulse Rate 108 H 85 Respiratory Rate 27 H 21 Blood Pressure 120/85 Pulse Oximetry 95 90 L Oxygen Flow Rate 08/21/23 10:00 08/21/23 10:00 08/21/23 10:00 Pulse Rate 101 H 82 Respiratory Rate 17 21 Blood Pressure 129/76 Pulse Oximetry 96 92 Oxygen Flow Rate 08/21/23 10:30 08/21/23 10:31 08/21/23 10:31 Pulse Rate 100 H 88 Respiratory Rate 16 33 H Blood Pressure 143/69 H Pulse Oximetry 97 91 Oxygen Flow Rate 08/21/23 11:00 08/21/23 11:00 08/21/23 11:00 Pulse Rate 100 H 82 Respiratory Rate 13 23 Blood Pressure 128/78 Pulse Oximetry 96 91 Oxygen Flow Rate Fraction of Inspired Oxygen 28 SaO2/FiO2 Ratio 332 Oxygen Delivery Method Nasal Cannula Oxygen Flow Rate 0 Narrative Exam Narrative: Patient's dressing is clean and dry no sign of any drainage. No sign of any erythema. Positive dorsiflexion and plantar flexion of the toes and ankle. Nontender to palpation to the posterior aspect of the calf. Palpable pedal pulses. Objective Labs 08/21/23 08:33 08/20/23 14:10 Labs: Laboratory Results - last 24 hr 08/20/23 08/21/23 14:10 08:33 WBC 9.1 RBC 2.95 L Hgb 8.5 L Hct 25.6 L MCV 86.7 MCH 28.8 MCHC 33.2 RDW 16.4 H Plt Count 299 Neut % (Auto) 60.4 D Lymph % (Auto) 28.2 [place] % (Auto) 10.0 Eos % (Auto) 0.2 L Baso % (Auto) 1.2 Neut # (Auto) 5500 Lymph # (Auto) 2600 [place] # (Auto) 900 Eos # (Auto) 0 Baso # (Auto) 100 Potassium 4.9 PFSH Medical History Diabetes mellitus HLD (hyperlipidemia) HTN (hypertension) Surgical History History of tonsillectomy (~196) History of lumbar surgery Social History household members: none Smoking Status: Former smoker alcohol intake: never Assessment & Plan Post-op Postoperative Procedures: Procedures Operation Date: 08/19/23 13:45 Actual Procedure Side Surgeon p Total Hip Arthroplasty/Anterior Approach Left Lakhwinder Rosenberg MD Postoperative day: 2 Postoperative plan narrative: Patient doing well after an anterior total hip arthroplasty. [facility]
--- NOTE | 2023-08-21 11:57 | PT.IPTN ---
Current Diagnoses Fracture of unspecified part of neck of left femur, initial encounter for closed fracture (08/17/23) Surgery Performed Operation Date: 08/19/23 13:45 Actual Procedures p Total Hip Arthroplasty/Anterior Approach(Left) - Lakhwinder Rosenberg MD Physical Therapy Treatment Note M2 PT-IP Current Condition Start: 08/20/23 13:11 Freq: NEEDED Status: Active Protocol: Document 08/20/23 10:10 AB (Rec: 08/20/23 13:34 AB [id number]) Physical Therapy Current Condition Current Condition Evaluation Date 08/20/23 Treatment Diagnosis s/p L NATALIE ant; difficulty in walking Onset Date 08/17/23 M3 PT-IP Subjective Start: 08/20/23 13:11 Freq: NEEDED Status: Active Protocol: Document 08/21/23 11:15 MB (Rec: 08/21/23 11:56 MB [id number]) Subjective Physical Therapy Visit Type Type Treatment Note Visit Start Time 11:15 Visit Stop Time 11:38 Notes Anterior left NATALIE, Left radial head fx and WBAT Number of MATERIALS HANDLING COORDINATOR Visits 0 Physical Therapy Visit Comments Patient Comments Pt hook lying in bed in the ICU and reluctantly agreeable to try PT. Therapy Pain Assessment Pain When Pain Assessed At Rest Pain Present Pain Present Pain Reported Location Left Hip Intensity 8 Scale Used Increases to 9.5/10 with mobility Description Sharp,With Movement Pain Behaviors Calling Out,Crying,Guarding, Holding Area,Wincing Pain Management Techniques Distraction,Modification of Treatment,Re-positioning M4 PT-IP Mobility and Gait Start: 08/20/23 13:11 Freq: NEEDED Status: Active Protocol: Document 08/21/23 11:15 MB (Rec: 08/21/23 11:56 MB [id number]) PT-Bed Mobility Assessment Scooting Scooting Up and Down in Bed Dependent PT-Transfer Assessment Comments Mobility Comments Pt could not get to the point of getting up to STS lift today. Tried getting up to EOB x3 with bed tilted 3 deg to the left, use of three rails and 2 person assistance. Pt cries out in 9.5/10 pain in his left hip with each partial sitting effort and he states he cannot do more. +2 max A to scoot up to HOB with bed flat , cues to use right foot and hold onto head board with right hand to help scoot up to HOB. Three attempts to get in a good position and then placed bed in chair position with rails up and needs in reach. M5 PT-IP Objective Assessments Start: 08/20/23 13:11 Freq: NEEDED Status: Active Protocol: Document 08/20/23 10:10 AB (Rec: 08/20/23 13:34 AB [id number]) Orientation Orientation/Cognition Level of Alertness Alert Orientation Name,Place,Situation Language Function Ability No Deficits Noted Safety Awareness Decreased Safety Awareness Strength Lower Extremity Strength Assessment Bilaterally Impaired Comments Strength Comments LLE: 3-/5 RLE : 3+/5 Sensation Assessment Sensation Sensation Description Numbness Comments Sensation Comments B lower leg neuropathy Muscle Tone Muscle Tone WNL Yes M6 PT-IP Treatment Start: 08/20/23 13:11 Freq: NEEDED Status: Active Protocol: Document 08/21/23 11:15 MB (Rec: 08/21/23 11:56 MB [id number]) Physical Therapy Treatment Education Education Provided Precautions,Weight Bearing Status,Post-Op Packet,Safety Other Treatments Other Treatment Performed APs x10, AAROM very minimal HS x10 to warm up left leg before attempting getting to EOB. Ed pt on ankle pumps and mini LAQs in cardiac chair position. M7 PT-IP Assessment and Plan Start: 08/20/23 13:11 Freq: NEEDED Status: Active Protocol: Document 08/21/23 11:15 MB (Rec: 08/21/23 11:56 MB [id number]) PT Summary Assessment and Plan Potential Rehabilitation Potential Fair Status of Condition at Evaluation Evolving Summary Impairments Pain,ROM,Strength,Balance, Coordination,Bed Mobility, Transfers,Gait,Activity Tolerance Progress Towards Goals Slow Progress due to Pain,Slow Progress due to Medical Issues,Slow Progress due to Activity Tolerance Assessment Summary Brayan con't to be in the ICU his HR increases to 127 BPM with attempted bed mobility and his BP is higher when nsg checks it at the beginning of treatment. His LLE has pitting edema and ecchymosis and he has high pain at rest and with attempted getting to EOB x3 and he states he has to stop d /t pain. He does actively move his left leg to the left today and PT must assist to replace it on the bed. Recommend cardiac chair positioning in the bed and OOB with total lift with nsg at this time. His medical and pain presentations are barriers to participation with acute PT and will decrease his frequency to once a day. Pt with mild to moderate self- limiting behaviors with therapist stating he cannot do some things. Goals Bed Mobility Goal Moderate Assistance Transfer Goal Moderate Assistance,Front Wheeled Walker Gait Goal Moderate Assistance,Front Wheel Walker Gait Distance 25 Other Goals improve bed mobility, transfers and ambulation using fWW 50 ft SBA Days to Meet Goals 10 Frequency of Treatment Frequency Of Treatment Once a Day Treatment Plan Physical Therapy Treatment Plan Bed Mobility Training,Transfer Training,Gait Training, Therapeutic Exercise,Balance Retraining,Post Op Education, Discharge Planning,Hot or Cold Pack,Neuromuscular Re-ed, Coordination Retraining,Manual Therapy Precautions Anterior Hip Precautions No Hip Extension,No Hip External Rotation Weight Bearing Status Weight Bearing Status Weight Bear as Tolerated Allowed Weight Bearing Amount (enter % LUE/LLE WBAT or #) (%) Recommendations To Nursing Amount of Assist Needed Mechanical Lift Discharge Recommendations PT Discharge Recommendations SNF Rehab Transportation Needs at Discharge Wheelchair/Cabulance,Stretcher /Ambulance
--- NOTE | 2023-08-21 12:24 | CM.DPC ---
Addendum entered by ANGELA Beltrán 08/21/23 13:56: ADD: SW met bedside with pt and explained role and updated on possible d/c to [facility] tomorrow if stable and pt confirms this is still his preference. SW updated that [facility] currently has a few COVID+ pts isolated at their facility and pt is disappointed to hear this but states he still plans to d/c to [facility] at this time and will continue to think about it as well. SW provided his IMM and explained his Medicare right to appeal discharge and pt does not anticipate any need to appeal when MD determines he is medically stable to discharge and provided pt with a copy of his IMM. BF Original Note: DCP Cont: Per MD, pt making progress and may be stable for d/c back to SNF tomorrow Mon if he remains stable overnight. Per PT, recommending d/c back to SNF at discharge. BRII called [facility] admissions and updated and they confirm they can accept pt back, but have two COVID+ pts in house that are in isolation, and have submitted to [employer] today for re-auth for SNF return. Plan: SW to meet bedside with pt later today with update on [facility] and COVID and for plan of likely SNF tomorrow Mon once [employer] auth obtained. Currently no need for PASRR as pt is a return and no significant change. ANGELA Beltrán
[2023-08-21] MEDS: OXYCODONE IR 5 MG TABLET PO (19:29)
[2023-08-21] MEDS: ATORVASTATIN 20 MG TABLET 40 MG PO (20:20)
[2023-08-21] MEDS: FLUCONAZOLE 400 MG/200 ML PIGGYBACK 100 MG IV (20:20)
[2023-08-21] MEDS: cephALEXin 250 MG CAPSULE 500 MG PO (20:20)
[2023-08-22] VITALS (13 sets, daily range): BP systolic 98–110; BP diastolic 55–68; PULSE 80–102; RESP 11–20; TEMP 36.6–36.8; O2SAT 88–98
[2023-08-22] MEDS: HYDROMORPHONE 0.5 MG INJ IV (00:32)
[2023-08-22] MEDS: ACETAMINOPHEN 325 MG TABLET 650 MG PO ×2 (06:18→13:01)
[2023-08-22] MEDS: IBUPROFEN 600 MG TABLET PO ×2 (06:18→13:00)
--- NOTE | 2023-08-22 07:02 | PC.NURSE ---
pt was medicated for pain, both w/ po and iv meds earlier in the shift, then he slept the second half of the shift without any complaints
--- NOTE | 2023-08-22 07:53 | PC.NURSE ---
Patient is in good spirits this morning, he denies pain at this time. His anyi dressing to l.anterior hip is cdi with motor flashing green. Mae putting out yellow urine. Patients blood sugar 94, breakfast will be here shortly. Patient will work with physical therapy sometime today.
--- NOTE | 2023-08-22 09:04 | P.PN_ITS ---
Subjective Subjective Date Patient Seen: 08/22/23 Time Patient Seen: 09:04 Interval history: Pt resting comfortably in bed, good pain control. Says he has stood at side of bed but hasn't walked much since surgery. Exam Vital Signs (past 8 hours): - 08/22/23 01:30 08/22/23 02:00 08/22/23 02:30 Temperature Pulse Rate 87 95 H 90 Respiratory Rate 15 20 15 Blood Pressure Pulse Oximetry 94 88 L 93 Oxygen Delivery Method Oxygen Flow Rate 08/22/23 03:00 08/22/23 03:27 08/22/23 03:30 Temperature Pulse Rate 86 83 Respiratory Rate 14 15 Blood Pressure Pulse Oximetry 95 95 Oxygen Delivery Method Nasal Cannula Oxygen Flow Rate 2 08/22/23 04:00 08/22/23 04:13 08/22/23 04:13 Temperature Pulse Rate 87 82 Respiratory Rate 16 11 L Blood Pressure 98/55 L Pulse Oximetry 95 97 Oxygen Delivery Method Oxygen Flow Rate 08/22/23 04:30 Temperature 98.2 F Pulse Rate 80 Respiratory Rate 14 Blood Pressure Pulse Oximetry 97 Oxygen Delivery Method Oxygen Flow Rate 2 Fraction of Inspired Oxygen 28 SaO2/FiO2 Ratio 332 Oxygen Delivery Method Nasal Cannula Oxygen Flow Rate 2 Narrative Exam Narrative: 5/5 strength in DF, PF, EHL on left; 3/5 hip flexors, quadriceps, hamstrings on left. Sensation to light touch intact throughout LLE. Calf soft, compressible, nontender. XAVIER functioning w/ scant bloody drainage. Objective Labs 08/21/23 08:33 08/20/23 14:10 [facility] Medical History Diabetes mellitus HLD (hyperlipidemia) HTN (hypertension) Surgical History History of tonsillectomy (~1961) History of lumbar surgery Social History household members: none Smoking Status: Former smoker alcohol intake: never Assessment & Plan Post-op Assessment and plan (1) S/P total hip arthroplasty: Assessment and Plan narrative: 1) Per review of CM notes, plan is to return to [facility] when medically stable. Disposition and pain control per hospitalist service. 2) Recommend ASA 81mg BID x 6 weeks for VTE prophylaxis unless contraindicated. 3) Recommend cefadroxil 500 mg BID x 14 days for prosthetic joint infection prophylaxis; cephalexin 500 mg BID started yesterday. 4) Pt on IV antifungal d/t rash in operative area; this can be discontinued on discharge, but recommend continuing antifungal powder to affected area. 5) F/u in ortho office in 2 weeks for wound check and imaging. At that time, XAVIER dressing can be removed and replaced with a 12 Aquacel dressing. Incision should remain covered x 1 month. 6) Weightbearing as tolerated to left leg. Anterior hip precautions. Postoperative Procedures: Procedures Operation Date: 08/19/23 13:45 Actual Procedure Side Surgeon p Total Hip Arthroplasty/Anterior Approach Left Lakhwinder Rosenberg MD Postoperative day: 3
--- NOTE | 2023-08-22 09:28 | PM.DS.1 ---
History of Present Illness History of Present Illness Date Patient Seen: 08/22/23 Time Patient Seen: 09:28 Chief complaint: Fall, hip pain Narrative: Per admitting provider, The patient is a 73-year-old male with history of diabetes mellitus 2, neuropathy, hypertension, and hyperlipidemia who presents with subacute left hip pain. The pain has been ongoing since a fall on August 04. The patient has had persistent and progressive left hip pain and is minimally weight-bearing has been using a wheelchair for the most part. Yesterday he presented and had an outpatient hip x-ray revealing a femoral neck fracture. He denies any numbness or weakness of the arm or leg. There has been no swelling of the leg. Case was reviewed with Orthopedics feel that a total hip replacement would be the best approach to this fracture. He also notes that he has a left radial head fracture that was identified in x-ray. He was sent from would emergency department to [facility] and has been there for the last 10 days. His left hip pain is not improved but he has been using a walker and ambulating. He notes minimal pain in the left arm and really minimal pain in the left elbow. He denies any chest pain, or dyspnea. No other injuries. He was given some morphine in the emergency department this is improving his leg pain. Discharge Providers Provider Date of admission: 08/17/23 16:31 Discharge Date: 08/22/23 Primary care physician: Gamal Sullivan MD Consults: 08/18/23 08:19 Consult to Orthopedic Surgery Routine Comment: Consulting Provider: Lakhwinder Rosenberg Reason for consultation: Femoral neck fracture Has provider been notified: Yes 08/19/23 21:02 Consult to Discharge Planning Routine Comment: Consult to Occupational Therapy Evaluate & Treat Comment: Physician Instructions: Evaluate and treat Consult to Physical Therapy Evaluate & Treat Comment: Physician Instructions: post op NATALIE protocol Discharge provider: Nadeem Merida DO Summary Hospital Course Discharge Diagnosis: 1. Subacute left hip fracture, present on admission and active. 2. Hyponatremia, present on admission and active. 3. Diabetes mellitus 2, present on admission and active. 4. Hypertension, present on admission and active. 5. Hyperlipidemia, present on admission and active. 6. Tinea corporis, present on admission and active. Continue Nystatin BID. 7. Postoperative respiratory distress, new and resolved. 8. Tachycardia and hypoxia today, new but resolved. Plan: -CXR today, wean O2 as able. -PT and OT. -transfer out of ICU, monitored breathing. -follow lytes. -resume all chronic medications. Full code. Hospital Course: This is a 73 year old male with PMH of DM2, HTN, HLD admitted with a subacute left hip fracture. He underwent surgical interventions on 08/19/23 after evaluation by orthopedics provider. His course was complicated by acute respiratory distress requiring ICU monitoring after surgery, though the exact etiology of this was not found. He improved quickly and O2 was able to be weaned prior to transfer for SNF for ongoing therapies after repair. No medication changes were recommended on discharge, except for changing aspirin to BID for DVT prevention which should be continued for 6 weeks and cephalexin for hardware prophylaxis per orthopedics surgery. Time Spent with Patient Time spent: Greater than 30 minutes Exam Vital Signs (past 8 hours): - 08/22/23 01:30 08/22/23 02:00 08/22/23 02:30 Temperature Pulse Rate 87 95 H 90 Respiratory Rate 15 20 15 Blood Pressure Pulse Oximetry 94 88 L 93 Oxygen Delivery Method Oxygen Flow Rate 08/22/23 03:00 08/22/23 03:27 08/22/23 03:30 Temperature Pulse Rate 86 83 Respiratory Rate 14 15 Blood Pressure Pulse Oximetry 95 95 Oxygen Delivery Method Nasal Cannula Oxygen Flow Rate 2 08/22/23 04:00 08/22/23 04:13 08/22/23 04:13 Temperature Pulse Rate 87 82 Respiratory Rate 16 11 L Blood Pressure 98/55 L Pulse Oximetry 95 97 Oxygen Delivery Method Oxygen Flow Rate 08/22/23 04:30 08/22/23 08:00 Temperature 98.2 F Pulse Rate 80 94 H Respiratory Rate 14 15 Blood Pressure 110/68 Pulse Oximetry 97 94 Oxygen Delivery Method Oxygen Flow Rate 2 0 Fraction of Inspired Oxygen 28 SaO2/FiO2 Ratio 332 Oxygen Delivery Method Nasal Cannula Oxygen Flow Rate 0 Narrative Exam Narrative: NAD, alert and oriented. Fluent speech. Lungs are clear, normal rate and effort. Heart is regular, no murmur gallop or rub. Abdomen is soft, non distended. Extremities are free of edema. Left hip wound is unremarkable, some early bruising. Objective Labs 08/21/23 08:33 08/20/23 14:10 [facility] Medical History Diabetes mellitus HLD (hyperlipidemia) HTN (hypertension) Surgical History History of tonsillectomy (~1961) History of lumbar surgery Social History household members: none Smoking Status: Former smoker alcohol intake: never Discharge Plan Discharge Plan Patient Disposition: SNF Transfer to: [facility] Discharge orders & Medications Prescriptions: New aspirin 81 mg Tablet,Delayed Release (Dr/Ec) 81 mg PO BID 42 Days Qty: 84 0RF acetaminophen 325 mg Tablet 650 mg PO Q6H Qty: 60 0RF acetaminophen 325 mg Tablet 650 mg PO Q8H PRN (Reason: Fever/Mild Pain (1-3)) Qty: 30 0RF cephalexin 500 mg tablet 500 mg PO BID 13 Days Qty: 26 0RF docusate sodium 100 mg Capsule 100 mg PO BID Qty: 30 0RF polyethylene glycol 3350 17 gram Powder In Packet 17 g PO DAILY PRN (Reason: Constipation) Qty: 14 0RF nystatin [Nystop] 100,000 unit/gram Powder 1 applic topical BID PRN (Reason: Rash) Qty: 2 0RF oxycodone 5 mg Tablet 5 mg PO Q3H PRN (Reason: Pain, Moderate (4-6)) 7 Days Qty: 25 0RF Continued metformin 1,000 mg tablet 1,000 mg PO BID meloxicam 15 mg tablet 15 mg PO DAILY lisinopril 10 mg tablet 10 mg PO DAILY insulin glargine [Lantus Solostar U-100 Insulin] 100 unit/mL (3 mL) insulin pen 9 unit SUBCUT BID Patient Comments: [NO ORIGINAL SIG] gabapentin 600 mg tablet 600 mg PO 4XD atorvastatin 40 mg tablet 40 mg PO BEDTIME methadone 10 mg tablet 10 mg PO BID Qty: 50 0RF Discontinued aspirin 81 mg tablet,delayed release (DR/EC) 81 mg PO DAILY Follow up/Referrals: Gamal Sullivan MD [Primary Care Provider] - Lakhwinder Rosenberg MD [Physician] - 2 Weeks (Follow up in ortho clinic w/ PA or Dr Rosenberg in 2 weeks for wound check and imaging. At this time, XAVIER dressing should be removed and Aquacel dressing placed. Pt to have incision covered x 1 month.) Discharge Health Status Multidrug resistant organism: No MDRO Precautions: [place] Diet/Activity/Treatments Diet: Diet as Tolerated and Carb-consistent/Diabetic Liquid consistency: Normal/Thin Food texture: Regular Activity: WBAT to LLE. Anterior hip precautions. Cold/Heat Therapy: Ice to hip as needed for pain. Skin/Wound/Dressing Care Dressing: Follow up with our team in 2 weeks for a wound check. Patient should have a dressing remain in place for a month which extends over his pannus so that it no time we will his pannus be able to come into contact with either his wound or his dressing. He should keep his XAVIER incisional wound VAC until he follows up with his in clinic and then have it replaced with a 12 inch Aquacel that time which extends from the bottom of his incision up onto his pannus. Visit Report/Discharge Packet Stand Alone Forms: Patient Portal/API Discharge Data Primary Care Provider: Gamal Sullivan
[2023-08-22] MEDS: ASPIRIN EC 81 MG TABLET PO (09:37)
[2023-08-22] MEDS: INSULIN GLARGINE 100 UNIT/ML 3ML PEN 9 UNIT SUBCUT (09:37)
[2023-08-22] MEDS: METHADONE 10 MG TABLET PO (09:37)
[2023-08-22] MEDS: cephALEXin 250 MG CAPSULE 500 MG PO (09:37)
[2023-08-22] MEDS: GABAPENTIN 600 MG TABLET PO ×2 (09:37→13:00)
[2023-08-22] MEDS: lisinopriL 10 MG TABLET PO (09:37)
[2023-08-22] MEDS: DOCUSATE 100 MG CAPSULE PO (10:46)
--- NOTE | 2023-08-22 10:59 | CM.DPC ---
Addendum entered by ANGELA Beltrán 08/22/23 12:07: ADD: Per PT note, pt was unable to sit EOB or stand due to pain and recommending stretcher transport for hip precautions and pain. BRII met bedside with pt and he confirms that he does not feel he can tolerate w/c for transport and requests BLS transport and aware that we cannot guarantee full coverage by insurance. KELTON Lennon kindly called [facility] and scheduled 1400 transport. SW completed BLS form and updated LUCIAN, RN, and Elijah. BF Original Note: DCP Discharge SNF Per MD, pt on room air and now medically stable to d/c to SNF for ongoing PT/OT for hip surgery and no barriers to discharge. SW called [facility] and they confirm they can accept and [facility] confirms they can accept new admits even with their COVID+ pts in-house and pt will be in a private room. Will work on a transport time for this afternoon. BRII met bedside with pt and updated on above and he confirms he remains agreeable to d/c to [facility] and has been aware of the COVID+ patients since this SW told him yesterday and states he has never had COVID and hopeful to avoid it if possible. Pt plans to update his Dtr via phone this morning. KELTON Lennon kindly updated satellite tv technician installer and LUCIAN and SW updated RN. Plan: Patient to d/c to [facility] today via facility van for ongoing rehab post hip surgery. KELTON Lennon to kindly fax d/c packet to [facility] to review and no PASRR needed as pt is a return. ANGELA Beltrán
--- NOTE | 2023-08-22 12:10 | CM.DPNOTE ---
Called for BLS transport per Thelma and spoke to Jacki at [facility]. They will pick pt. up at 1400 to go to [facility]. Citlalli Salgado CM Tattoo Technician.
[2023-08-22] MEDS: OXYCODONE IR 5 MG TABLET PO (13:01)
== END 2023-08-22 14:00 | DRG 521 ==
LOC: ED 13:07 → AC 16:32 → ICU 08-19 21:05
PROVIDERS: Orthopaedic Surgery Adult Reconstructive Orthopaedic Surgery; Student in an Organized Health Care Education/Training Program; Admitting Provider Hospitalist; Emergency Provider Emergency Medicine; PCP Internal Medicine; Referring Provider Emergency Medicine; Visit Provider Hospitalist
PROC: 0SRB049 Replacement of Left Hip Joint with Ceramic on Polyethylene Synthetic Substitute, Cemented, Open Approach (ICD-10-PCS; CPT 27130; principal; 2023-08-19 13:45)
DX: S72.032A Displaced midcervical fracture of left femur, initial encounter for closed fracture (principal); J96.01 Acute respiratory failure with hypoxia; E87.1 Hypo-osmolality and hyponatremia; Z68.41 Body mass index [BMI] 40.0-44.9, adult; D62 Acute posthemorrhagic anemia; E11.9 Type 2 diabetes mellitus without complications; I10 Essential (primary) hypertension; E78.5 Hyperlipidemia, unspecified; B35.4 Tinea corporis; M16.0 Bilateral primary osteoarthritis of hip; E66.9 Obesity, unspecified; E87.5 Hyperkalemia; R00.0 Tachycardia, unspecified; W19.XXXA Unspecified fall, initial encounter; Z79.4 Long term (current) use of insulin; Z87.891 Personal history of nicotine dependence; S72.092A Other fracture of head and neck of left femur, initial encounter for closed fracture; M25.551 Pain in right hip; M25.552 Pain in left hip
CPT/HCPCS: 36415; 36430; 71045; 72192; 72195; 73502; 73522; 76000; 80048; 80053; 82962; 83036; 84132; 85014; 85018; 85025; 85610; 85730; 86850; 86900; 86901; 87797; 93005; 94762; 96374; 96376; 97110; 97163; 97530; 99284; 99285; C1776; P9016; J0136; J0171; J0690; J1100; J1170; J1200; J1450; J1644; J1815; J1940; J2270; J2405; J2704; J3010; J3490

== ENCOUNTER → 2023-09-06 13:28 | Outpatient (ROUT) | payer OTHER, SELFPAY ==
[2023-08-17 18:00] VITALS: BMI 42.8
[2023-09-06 13:50] LABS: Appearance Urine UA CLEAR; Bilirubin Urine UA NEGATIVE (NEGATIVE); Color Urine UA YELLOW; Glucose Urine UA NEGATIVE (Negative); Ketones Urine UA NEGATIVE (NEGATIVE); Leukocyte Esterase Urine UA NEGATIVE (NEGATIVE); Nitrite Urine UA NEGATIVE (Negative); Occult Blood Urine UA NEGATIVE (Negative); Protein Urine UA NEGATIVE (Negative); Urobilinogen Urine UA 0.2 E.U./dL (0.2)
[2023-09-06 13:51] LABS: Urine Volume 10mL (spun)
[2023-09-06 13:54] LABS: Bacteria Urine None Seen; Culture Indicated Urine Cult Not Indicated; RBC Urine None Seen (0-5/HPF); Squamous Epithelial Cell Urine None Seen (0-5/HPF); WBC Urine None Seen (0-5/HPF)
== END ==
PROVIDERS: PCP Internal Medicine; Visit Provider Internal Medicine
DX: R30.9 Painful micturition, unspecified (principal); Z96.0 Presence of urogenital implants
CPT/HCPCS: 81001